=== PATIENT | male | born 1930 | race Caucasian/White ===

== ENCOUNTER 2017-07-10 06:19 | Inpatient (IN) | payer MEDICARE ==
[~2017-07-10] VITALS: Ht 170.2 cm; Wt 96.4 kg
[2017-07-10] VITALS (12 sets, daily range): BP systolic 140–166; BP diastolic 66–71; PULSE 53–80; RESP 17–19; TEMP 97.7–97.9; O2SAT 94–99
[~2017-07-10 06:19] MED LIST: AMLO5TAB2 PO; COUM5TAB PO; COUM7.5T PO; COZA100T PO; EZET10 PO; LIPI40TA PO; METO25TA3 PO; MULT1TAB84 PO; OMEP20TA93 PO; PROS5TAB PO; VITA100018 PO; VITA500T35 PO
[2017-07-10] MEDS ORDERED: IOHEXOL 350 MG/ML 100 ML BTL (for Cath Lab) OTHER ONE (06:20)
[2017-07-10] MEDS ORDERED: ASPIRIN 325 MG TAB PO SCH (06:45)
[2017-07-10] MEDS ORDERED: NS 1000P @30 MLS/HR (KVO) IV SCH (06:45)
[2017-07-10] MEDS ORDERED: MULT-65 PO (07:17)
[2017-07-10] MEDS ORDERED: NITR0.4S SL (07:17)
[2017-07-10] MEDS ORDERED: METO25TA3 PO (07:17)
[2017-07-10] MEDS ORDERED: FLUTI44I INH (07:17)
[2017-07-10] MEDS ORDERED: PRAV40TA2 PO (07:17)
[2017-07-10] MEDS ORDERED: TRAM50TA PO (07:17)
[2017-07-10 07:30] LABS: AUTOMATED NEUTROPHIL # 1.7 TH/MM3 (1.8-7.7); BASOPHIL % 0.5 % (0.0-2.0); EOSINOPHIL # 0.2 TH/MM3 (0-0.4); EOSINOPHIL % 4.1 % (0.0-4.0); HEMOGLOBIN 11.3 GM/DL (13.0-17.0); LYMPH % 44.1 % (9.0-44.0); LYMPHOCYTE # 2.1 TH/MM3 (1.0-4.8); MEAN CELL VOLUME 87.7 FL (80.0-100.0); MEAN CORPUSCULAR HEMOGLOBIN 29.2 PG (27.0-34.0); MEAN CORPUSCULAR HGB CONC 33.3 % (32.0-36.0); MEAN PLATELET VOLUME 7.6 FL (7.0-11.0); MONO % 13.9 % (0.0-8.0); MONOCYTE # 0.7 TH/MM3 (0-0.9); NEUT % 37.4 % (16.0-70.0); PLATELET COUNT 201 TH/MM3 (150-450); RED BLOOD COUNT 3.87 MIL/MM3 (4.50-5.90); RED CELL DISTRIBUTION WIDTH 15.2 % (11.6-17.2); WHITE BLOOD COUNT 4.7 TH/MM3 (4.0-11.0)
[2017-07-10 07:43] LABS: INTERNATIONAL NORMALIZED RATIO 1.5 RATIO
[2017-07-10 07:44] LABS: BICARBONATE 28.8 MEQ/L (21.0-32.0); CALCIUM 8.8 MG/DL (8.5-10.1); CREATININE 1.29 MG/DL (0.60-1.30)
[2017-07-10] MEDS ORDERED: HEPARIN-NS/PF FLUSH BAG 2,000 ML IV FLUSH ONE (08:21)
[2017-07-10] MEDS ORDERED: MIDAZOLAM HCL 2 MG/2 ML VIAL ONE ×2 (08:21→08:49)
[2017-07-10] MEDS ORDERED: NITROGLYCERIN INJ 5 ML ONE (08:22)
[2017-07-10] MEDS ORDERED: VERAPAMIL HCL 5 MG/2 ML VIAL ONE (08:22)
[2017-07-10] MEDS ORDERED: HEPARIN SODIUM - IV 10,000 UNITS/10 ML VIAL ONE (08:22)
[2017-07-10] MEDS ORDERED: SODIUM CHLOR 0.9% 1000 ML INJ 1,000 ML IV SCH (09:27)
--- NOTE | 2017-07-10 09:28 | CATHPROC ---
Stylect HIS Report Study Information Study Number Admission Scheduled Start Study Start [id number] Jul 10 2017 6:19AM 07/10/2017 Jul 10 2017 7:59AM [place] Service Cardiac Catheterization Admit Source Facility Department Other [facility] - Print Line Tailer Physician and Clinical Staff Initial Earl Galindo Branch Store Manager Cr Lackey,AGUST[place] Branch Store Manager Beth Mclean,[place] Recorder Maria C Lima,RT(R) (BS) Scrub Trung BonillaRT(R) Procedures Performed Procedure Location (Site) Vessel Name Coronary Angiograms LCA Left Coronary Coronary Angiograms RCA Right Coronary L Heart Cath Equipment Time Transport Specialist Description Size Mfg Part Number Used/Scraped TRANSDUCER, TRUWAVE [id number] 08:18 FONTAINE ROSENTHAL * Used W/STOCKCOCK *[id number] *[id number] 08:18 MALLINCKRODT SYRINGE, ANGIOMAT 150ML 150ML *[id number] Used 2SUB [id number] 08:18 [employer]Easy PACK, CCL CUSTOM * Used *[id number] 08:18 [employer] SUPPORT, ARTERIAL ADULT 23087 *[id number] Used [id number] 08:18 [email or web address] PACER PEN, SKIN DUAL W/ RULER * Used *[id number] 09:08 MEDTRONIC JR 5.0 DXTERITY CATHETER fr 5 [id number] Used BAND, RADIAL COMPRESSION TR [id number] 09:18 [employer] MEDICAL 29CM Used LARGE 29 *[id number] 08:18 [employer] MEDICAL WIRE, EXCHANGE 260CM 3MMJ 260CM Used *[id number] 08:18 NAMIC MANIFOLD, 4 PORT * Used *[id number] 08:18 [employer]COMED OMNIPAQUE, 350 MG, 100ML 100ML [id number] Used [id number] 08:18 [employer] MEDICAL BLANKET,WARM AIR CCL * Used *[id number] 08:18 [employer] MEDICAL JELCO NEEDLE 4056 *[id number] Used CATHETER, FR5 OPTITORQUE [id number] 08:42 TERUMO MEDICAL FR 5 Used RADIAL TIG 4.0 *[id number] SHEATH, FR6 TRANSRADIAL RM*[id number] 08:18 [employer] MEDICAL FR 6 Used SLENDER 10CM *[id number] History: Current Medications Medication Dosage/Unit Route Frequency Last Date/Time Taken COZAAR Beta [place] NORVASC ASA Coumadin Statins (any) Zieta History: Allergies Allergy Reaction Lortab Rash PAPER TAPE Rash hydrocodone Rash acetaminophen Rash History: Risk Factors Family History of Hypertension Dyslipidemia Previous PA Previous Heart Failure Premature CAD Yes Yes No No No Prior Valve Prior PCI Prior CABG Surgery No No No Cerebrovascular Peripheral Artery Chronic Lung On Dialysis Diabetes Disease Disease Disease No No No No No History: Stress Tests Stress or Imaging Studies Performed No History: Other Current Smoker Method Quit Packs a Day Years Used Pack Years No Cigarettes 45 Years Ago 1 23 23 Labs Hgb (g/dl) Hct (%) WBC (l/cumm) Platelets (thousands) 11.60-17.00 35.00-51.00 4.00-11.00 150.00-450.00 11.3 34 4.7 201 Glucose (mg/dl) BUN (mg/dl) Creatinine (mg/dl) BUN:Creatinine (1:x) 74.00-106.00 7.00-18.00 0.50-1.30 10.00-20.00 95 17 1.2 14.2 Na (meq/l) K (meq/l) 136.00-145.00 3.50-5.10 141 4.1 INR (PTT:PT) 0.90-1.10 1.5 CPK-MB (ng/ML) 0.50-3.60 Not Drawn Medication Medication Total Dose (Bolus/Oral) Medication Total Dosage/Unit 1% XYLOCAINE 1 mL RADIAL COCKTAIL 1 units Medications (Bolus/Oral) Medication Time Given Dosage/Unit Administered By Reason 1% XYLOCAINE 07/10/2017 8:47:28 AM 1 mL Earl Pratt 1 mL 1% XYLOCAINE given in lab by Earl Pratt in Right Radial via Subcutaneous. Ntg 200mcg Verapamil 2.5mg Heparin RADIAL COCKTAIL 07/10/2017 8:49:25 AM 1 units Earl Pratt 2000U 1 units RADIAL COCKTAIL given in lab by Earl Pratt in Right Antecubital via Radial. Reason: Ntg 20 0mcg Heparin 2500U. Medication (Drip) Medication Time Given Dosage/Unit Concentration/Unit Diluent (ml) Solution IV Solutions 07/10/2017 8:15:58 AM 0 mL (IV) 500 NaCl .9 IV Solutions given in lab by Beth Mclean, RN in Right Antecubital via Peripheral IV. Pump/Drip Fl ow = 30 ml/hr using NaCl .9. Initial Case Assessment Cardiovascular HR Rhythm NIBP 54 reg 171/78 Edema Present Skin color Skin None Normal Warm Dry Circulatory - Right Pulses Dorsalis Pedis Posterior Tibial Femoral Radial 1 1 2 3 Scale (0,1,2,3,4,d) Circulatory - Left Pulses Dorsalis Pedis Posterior Tibial Femoral Radial 1 1 2 Scale (0,1,2,3,4,d) Circulatory - Lower Extremities Color Lower Right Color Lower Left Normal Normal Neurological State Oriented to time-place- Alert Moves all extremities person Respiration - General Respiration Rate SpO2 (%) (B/min) 8 98 Chronological Log Time Study Chronological Log 8:12:11 Patient arrived via Bed. 8:12:13 Patient Name, D.O.B, / Armband Verified By R.N. 8:12:15 Consent signed by the physician and the patient and verified by the Print Line Tailer staff. 8:12:16 Pre-op and post- op instructions given; patient acknowledges understanding of instructions . 8:14:53 Verbal Stimulation=2 Physical Stimulation=2 Airway=2 Respiration=2 TOTAL=8. (0=absent, 1=lucero ited, 2=present) 8:14:55 Presedation assessment performed by Print Line Tailer RN. 8:14:58 Allens test performed on the right radial and ulnar artery. 8:15:05 Patient has been NPO for More than 6Hrs. 8:15:07 Skin Breakdown none per pt 8:15:08 Patient Warmer Placed on the Table. 8:15:53 Jasper Prominences Protected 8:15:57 A # 20 IV was noted in the Antecubital (right). Grade = 0 IV Solutions given in lab by Beth Mclean, RN in Right Antecubital via Peripheral IV. Pump/Dr ip Flow = 30 ml/hr 8:15:58 using NaCl .9. 8:15:59 History and physical on the chart or being dictated. Assessment: Initial Case, HR=54 BPM, Rhythm=reg, HGTM=474/78 mmhg, Edema=None, Color=Normal, Ski n = Warm, Dry Right Pulses: Edgar Ped=1, Post Tib=1, Femoral=2, Radial=3 Left Pulses: Edgar Ped=1, Post Tib=1, Femoral=2 8:16:02 Lower Right Extremities: Color=Normal Lower Left Extremities: Color=Normal Neurological: State=Alert, Ox3, YBARRA Respiration: Resp=8 B/min, SpO2=98 % Vitals capture started with the following parameters, Patient=Adult, Interval=5 min, Initial Pre cwgce=845 mmHg, 8:16:36 Deflation Rate=5 mmHg, Cuff placed on Right Ankle 8:17:53 HR=56 bpm, YGHI=174/78 mmhg, SpO2=97.0 %, Resp=9 B/min, Pain=0, Janis=10, Buckley=2 8:22:19 HR=58 bpm, EIDX=528/65 mmhg, SpO2=99.0 %, Resp=11 B/min, Pain=0, Janis=10, Buckley=2 8:22:52 Reference ECG taken 8:26:32 Right Radial and right groin prepped with 2% chlorhexidine, and draped after a 3 min. waitin g time. 8:27:21 HR=53 bpm, FRUO=487/76 mmhg, SpO2=97.0 %, Resp=14 B/min, Pain=0, Janis=10, Buckley=2 8:31:47 MD paged 8:32:37 Pressure channel 1 zeroed. 8:32:56 HR=55 bpm, DDEI=576/71 mmhg, HhY2=058.0 %, Resp=16 B/min, Pain=0, Janis=10, Buckley=2 8:37:19 HR=58 bpm, BCZR=911/82 mmhg, SpO2=99.0 %, Resp=12 B/min, Pain=0, Janis=10, Buckley=2 8:40:11 MD arrived 8:42:18 HR=58 bpm, MVAY=054/76 mmhg, SpO2=99.0 %, Resp=15 B/min, Pain=0, Janis=10, Buckley=2 Time Out. Correct patient, correct procedure, correct physician, power injector not loaded with contrast with surgical 8:45:24 team present. Time Out Concurred by MD and individual staff in procedure. MD aware of INR 8:45:53 Case Start 8:47:28 1 mL 1% XYLOCAINE given in lab by Earl Pratt in Right Radial via Subcutaneous. 8:47:58 HR=62 bpm, TCAV=241/76 mmhg, MzG0=368.0 %, Resp=6 B/min, Pain=0, Janis=10, Buckley=2 8:48:59 Access site was right Radial Artery. A SHEATH, FR6 TRANSRADIAL SLENDER 10CM FR 6 was advanced into the Radial (right) using the Gladis montes 8:49:07 technique. 1 units RADIAL COCKTAIL given in lab by Earl Pratt in Right Antecubital via Radial. Reason: N tg 200mcg Heparin 8:49:25 2500U. A CATHETER, FR5 OPTITORQUE RADIAL TIG 4.0 FR 5 was advanced over a wire. OMNIPAQUE, 350 MG, 100M L 100ML 8:50:30 was used for injections. 8:52:16 HR=84 bpm, KHSZ=166/78 mmhg, SpO2=94.0 %, Resp=16 B/min, Pain=0, Janis=10, Buckley=2 Recorded Pressure: Ao, HR=84, Condition=Condition 1 8:52:37 (Aorta) Ao 127/68/96 8:52:49 The LCA was injected and visualized at various angles. OMNIPAQUE, 350 MG, 100ML 100ML used. 8:55:20 DOCU called. Advised pt will need a bed. 8:57:15 HR=55 bpm, DGUK=360/69 mmhg, SpO2=93.0 %, Resp=15 B/min, Pain=0, Janis=10, Buckley=2 8:59:04 The RCA was injected and visualized at various angles. OMNIPAQUE, 350 MG, 100ML 100ML use d. Recorded Pressure: LV, HR=74, Condition=Condition 1 9:01:52 (Left Ventricle) LV 157/11/17 9:02:55 HR=59 bpm, FVFY=728/66 mmhg, SpO2=95.0 %, Resp=27 B/min, Pain=0, Janis=10, Buckley=2 After removing the current catheter a MPA-2 INFINITI CATHETER FR 5 was advanced over a WIRE, E XCHANGE 260CM 9:03:32 3MMJ 260CM. 9:07:58 HR=60 bpm, UESX=335/67 mmhg, SpO2=94.0 %, Resp=16 B/min, Pain=0, Janis=10, Buckley=2 After removing the current catheter a JR 5.0 DXTERITY CATHETER fr 5 was advanced over a WIRE, EXCHANGE 260CM 9:08:02 3MMJ 260CM. Recorded Pressure: LV, Ao, HR=61, Condition=Condition 1 9:10:54 (Left Ventricle) LV 146/14/16, (Aorta) Ao 142/56/93 9:12:59 HR=62 bpm, JZCI=969/56 mmhg, SpO2=96.0 %, Resp=18 B/min, Pain=0, Janis=10, Buckley=2 9:15:12 Catheter was removed 9:15:20 Case End 9:15:41 Catheter(s) removed without difficulty 9:17:08 No case complications noted. 9:17:12 Bedside Report will be given. 9:17:38 A Left Heart Cath was performed. 9:17:52 HR=57 bpm, TSEB=705/68 mmhg, SpO2=99.0 %, Resp=12 B/min, Pain=0, Janis=10, Buckley=2 Radial Compression Device Used. 13 mLs of air placed in BAND, RADIAL COMPRESSION TR LARGE 29 2 9CM. Affected 9:18:00 hand 97 % O2 saturation. 9:22:51 HR=56 bpm, RLJV=634/67 mmhg, Resp=8 B/min, Pain=0, Janis=10, Buckley=2 9:24:18 Vitals capture stopped. End Study - Contrast Media Used In Study Contrast Total Opened (mL) Total Used (mL) Total Wasted (mL) Omnipaque 85 85 0 End Study - Maximum Contrast Load Max Contrast Load (mL) 387.5 End Study - Radiation Exposure Fluoro Time (minutes) 11.2 End Study - Sheaths Sheaths Pulled By Sheath Hold Time (min) Trung Bonilla End Study - Patient Disposition Complications Transferred To Interventional Outcome No Telemetry Bed No attempt made
[2017-07-10] MEDS ORDERED: SODIUM CHLORIDE 0.9% FLUSH 10 ML FLUSH IV FLUSH PRN ×2 (09:30→11:15)
[2017-07-10] MEDS ORDERED: BACITRACIN OINT 0.9 GM PKT TOP ONE (09:30)
[2017-07-10] MEDS ORDERED: ONDANSETRON HCL 4 MG/2 ML VIAL IVP PRN (09:30)
--- NOTE | 2017-07-10 10:00 | MA ---
cc: Earl Pratt MD 07/10/2017 PROCEDURE PERFORMED: Left heart catheterization, left ventriculography, coronary angiography, right renal arterial approach. DESCRIPTION OF PROCEDURE: The patient was brought to the cardiac cathode ray tube salvage processor in fasting state. The patient was sedated with 2 mg of IV Versed. Using 1% lidocaine for local anesthesia, a Terumo slender sheath was inserted in the right renal artery, requiring only a single stick. Coronary angiography was then performed using a Sebring catheter. Additional angiograms were obtained of the right coronary artery with a right 4 Jimmy with pressure damping. The Sebring catheter was also used to cross the valve and do an LV gram and pullback. Films were studied, and I thought that he would be better off with bypass than stenting. The sheath has been removed with a Terumo band placed. There were no complications. Note, standard cocktail was administered minus the verapamil nitroglycerin and heparin in this cocktail. FINDINGS: 1. Hemodynamics. Left ventricular pressure was 146/0 with an end diastolic pressure of 16. The aortic pressure is 142/56 with a mean of 93. There was no gradient during pullback from the left ventricle to the aorta. 2. Left ventriculography. Left ventriculography shows normal left ventricular function with EF 60%. 3. Coronary angiography. Left main coronary artery has about 20% distal tapering. The LAD has a very focal 90% stenosis just before a very large diagonal branch. The origin of the diagonal branch is not able to be visualized while there is disease in the LAD just past the diagonal branch about 70%, and the distal LAD has about a focal 75% stenosis. The diagonal branch is 80% proximal eccentric disease. Circumflex artery has about 35% disease. The right coronary artery is dominant and has an ostial focal 80% stenosis with pressure damping. CONCLUSIONS: 1. Preserved LV function. 2. Unremarkable hemodynamics. 3. Normal left ventricular function. 4. Severe multivessel disease. RECOMMENDATIONS: Coronary artery bypass grafting with bypasses to the LAD in 2 locations to the diagonal branch and right coronary artery. The patient will be admitted overnight for observation and a cardiothoracic surgery consult obtained. Earl Pratt MD VEW/DL , 09:25 AM , 09:59 AM
[2017-07-10] MEDS ORDERED: PAPAVERINE INJ 60 MG, NITROGLYCERIN INJ 100 MCG, DILTIAZEM INJ 100 MG in SODIUM CHLORID... IRRIGATION SCH (11:15)
[2017-07-10] MEDS ORDERED: CHLORHEXIDINE GLUCONATE 4% SOLN 120 ML BTL TOPICAL SCH (11:15)
[2017-07-10] MEDS ORDERED: INSULIN REGULAR (IV INFUSION) 100 UNITS in SODIUM CHLORIDE 0.9% INJ 99 ML IV PRN (11:15)
[2017-07-10] MEDS ORDERED: CEFAZOLIN INJ 500 MG in SODIUM CHLORIDE 0.9% IRR BTL 500 ML IRRIGATION SCH (11:15)
[2017-07-10] MEDS ORDERED: METOPROLOL TARTRATE 25 MG TAB PO SCH (11:15)
[2017-07-10] MEDS ORDERED: DEXTROSE 50% IN WATER 50 ML VIAL(D50) IV PUSH PRN (11:15)
[2017-07-10] MEDS ORDERED: ceFAZolin 2 GM PREMIX 50 ML IV SCH (11:15)
[2017-07-10] MEDS ORDERED: MISC INFORMATION XX ONE (12:00)
--- NOTE | 2017-07-10 12:31 | RADRPT ---
EXAM DATE/TIME: 07/10/2017 12:09 [facility] COMPARISON: No previous studies available for comparison. INDICATIONS : Evaluate for pneumonia, pneumothorax or communicable disease. Pre op cabg. MEDICAL HISTORY : Hypertension. pulmonary embolism, blood clot left leg, hx of kidney cancer, renal carcinoma SURGICAL HISTORY : Cholecystectomy. angioplasty, turp, left radical nephrectomy ENCOUNTER: Initial ACUITY: 1 day PAIN SCORE: 0/10 LOCATION: Bilateral chest FINDINGS: A single view of the chest demonstrates the lungs to be symmetrically aerated without evidence of mas s, infiltrate or effusion. The cardiomediastinal contours are unremarkable. Osseous structures are intact. CONCLUSION: No acute disease. Willam Evans Jr., MD on July 10, 2017 at 12:29 Board Certified Radiologist. This report was verified electronically.
--- NOTE | 2017-07-10 13:51 | RADRPT ---
EXAM DATE/TIME: 07/10/2017 12:31 [facility] COMPARISON: No previous studies available for comparison. EXTERNAL COMPARISON : [facility], Bilateral lower extremity venous doppler leg, October 31, 2011 INDICATIONS : Preop CABG. MEDICAL HISTORY : DVT. PE. BPH. Renal cancer. CAD. SURGICAL HISTORY : Angioplasty. Cholecystectomy. Left nephrectomy. Right knee arthroscopy. Foot surgery. Left wrist surgery. Discogram. ENCOUNTER: Initial ACUITY: 1 day PAIN SCORE: 0/10 LOCATION: Bilateral leg. TECHNIQUE: Venous ultrasound of the left and right leg was performed from the inguinal ligament to the proximal calf. Real-time, color Doppler and spectral tracing, compression and augmentation techniques were us ed. FINDINGS: RIGHT LEG: There is normal compressibility of the deep venous system from the inguinal region to the proximal ca lf. No echogenic clot is seen in the lumen of the common femoral, femoral, popliteal, and posterior tibial veins. There is a normal response of the venous system to proximal and distal augmentation an d respiration. LEFT LEG: There is normal compressibility of the deep venous system from the inguinal region to the proximal ca lf. No echogenic clot is seen in the lumen of the common femoral, femoral, popliteal, and posterior tibial veins. There is a normal response of the venous system to proximal and distal augmentation an d respiration. CONCLUSION: No evidence of DVT Agapito Fulton MD on July 10, 2017 at 13:49 Board Certified Radiologist. This report was verified electronically.
--- NOTE | 2017-07-10 13:54 | RADRPT ---
EXAM DATE/TIME: 07/10/2017 12:40 [facility] COMPARISON: No previous studies available for comparison. EXTERNAL COMPARISON : [facility], Bilateral lower extremity venous doppler leg, October 31, 2011 INDICATIONS : Preop CABG. MEDICAL HISTORY : DVT. PE. BPH. Renal cancer. CAD. SURGICAL HISTORY : Angioplasty. Cholecystectomy. Left nephrectomy. Right knee arthroscopy. Foot surgery. Left wrist surgery. Discogram. ENCOUNTER: Initial ACUITY: 1 day PAIN SCORE: 0/10 LOCATION: Bilateral leg. GREATER SAPHENOUS VEIN THIGH: PROXIMAL: Right 4 mm Left 4 mm MID: Right 2 mm Left 2 mm DISTAL: Right 3 mm Left 3 mm CALF: PROXIMAL: Right 3 mm Left 3 mm MID: Right 3 mm Left 2 mm DISTAL: Right 3 mm Left 2 mm FINDINGS: The venous system of the lower extremities are patent by color Doppler imaging. Measurements of the leg veins (in mm) are listed above. CONCLUSION: Venous mapping as above. Agapito Fulton MD on July 10, 2017 at 13:52 Board Certified Radiologist. This report was verified electronically.
--- NOTE | 2017-07-10 13:57 | RADRPT ---
EXAM DATE/TIME: 07/10/2017 12:58 [facility] COMPARISON: No previous studies available for comparison. EXTERNAL COMPARISON : [facility], Bilateral lower extremity venous doppler leg, October 31, 2011 INDICATIONS : Preop CABG. MEDICAL HISTORY : DVT. PE. BPH. Renal cancer. CAD. SURGICAL HISTORY : Angioplasty. Cholecystectomy. Left nephrectomy. Right knee arthroscopy. Foot surgery. Left wrist surgery. Discogram. ENCOUNTER: Initial ACUITY: 1 day PAIN SCORE: 0/10 LOCATION: Bilateral neck PEAK SYSTOLIC VELOCITIES (cm/sec): ICA/CCA RATIO: Right: 1.3 Left: 1.1 ICA: Right: 118 Left: 114 CCA: Right: 90 Left: 100 ECA: Right: 179 Left: 149 VERTEBRAL: Right: 58 antegrade Left: 61 antegrade Elevated flow velocities and ICA/CCA ratios have been found to correlate with increased degrees of vessel stenosis, calculated as percentage of diameter relative to a normal segment of distal ICA/CCA FINDINGS: RIGHT CAROTID: No significant stenosis is visualized. The waveforms are within normal limits. LEFT CAROTID: No significant stenosis is visualized. The waveforms are within normal limits. VERTEBRAL ARTERIES: Antegrade flow is seen in both vertebral arteries. MISCELLANEOUS: None. CONCLUSION: 1. Scattered bilateral carotid plaque without significant flow-limiting stenosis. 2. Antegrade vertebral artery flow bilaterally. Trell Ellis MD on July 10, 2017 at 13:54 Board Certified Radiologist. This report was verified electronically.
[2017-07-10] MEDS ORDERED: HEPARIN SODIUM - IV 10,000 UNITS/10 ML VIAL IV PUSH ONE (15:00)
[2017-07-10] MEDS: HEPARIN-D5W 25,000 U/250 ML 250 ML IV PRN (15:32)
[2017-07-10 16:12] LABS: BACTERIA, URINE RARE /hpf; BILIRUBIN, URINE NEG (NEG); BLOOD, URINE NEG (NEG); GLUCOSE,URINE NEG (NEG); KETONE, URINE NEG (NEG); NITRITE,URINE NEG (NEG); PH, URINE 6.5 (5.0-8.5); URINE COLOR YELLOW (YELLW/STRAW); URINE LEUKOCYTE ESTERASE NEG (NEG)
[2017-07-10 16:26] LABS: HEMOGLOBIN A1C 6.1 % (4.3-6.0)
--- NOTE | 2017-07-10 17:38 | PD.CAR.PN ---
CVT Progress Note Subjective/Hospital Course: pt seen and evaluated, full consult to follow scheduled for surgery on sunday RISK SCORES About the STS Risk Calculator Procedure: CAB Only Risk of Mortality: 2.661% Morbidity or Mortality: 17.206% Long Length of Stay: 7.316% Short Length of Stay: 32.973% Permanent Stroke: 1.386% Prolonged Ventilation: 10.644% DSW Infection: 0.467% Renal Failure: 6.177% Reoperation: 6.351% Objective: Vital Signs Date Time Temp Pulse Resp B/P (MAP) Pulse Ox O2 Delivery O2 Flow Rate FiO2 07/10/17 17:00 79 07/10/17 16:00 63 07/10/17 15:00 65 07/10/17 15:00 73 19 163/70 (101) 96 07/10/17 14:00 67 17 140/71 (94) 99 07/10/17 14:00 65 07/10/17 14:00 67 17 140/71 (94) 99 07/10/17 13:38 97.9 67 19 155/67 (96) 97 07/10/17 09:30 99 Room Air 07/10/17 06:30 97.8 53 18 156/69 (98) 98 Labs: Laboratory Tests Test 07/10/17 07:05 07/10/17 15:50 White Blood Count 4.7 TH/MM3 (4.0-11.0) Red Blood Count 3.87 MIL/MM3 (4.50-5.90) Hemoglobin 11.3 GM/DL (13.0-17.0) Hematocrit 34.0 % (39.0-51.0) Mean Corpuscular Volume 87.7 FL (80.0-100.0) Mean Corpuscular Hemoglobin 29.2 PG (27.0-34.0) Mean Corpuscular Hemoglobin Concent 33.3 % (32.0-36.0) Red Cell Distribution Width 15.2 % (11.6-17.2) Platelet Count 201 TH/MM3 (150-450) Mean Platelet Volume 7.6 FL (7.0-11.0) Neutrophils (%) (Auto) 37.4 % (16.0-70.0) Lymphocytes (%) (Auto) 44.1 % (9.0-44.0) Monocytes (%) (Auto) 13.9 % (0.0-8.0) Eosinophils (%) (Auto) 4.1 % (0.0-4.0) Basophils (%) (Auto) 0.5 % (0.0-2.0) Neutrophils # (Auto) 1.7 TH/MM3 (1.8-7.7) Lymphocytes # (Auto) 2.1 TH/MM3 (1.0-4.8) Monocytes # (Auto) 0.7 TH/MM3 (0-0.9) Eosinophils # (Auto) 0.2 TH/MM3 (0-0.4) Basophils # (Auto) 0.0 TH/MM3 (0-0.2) CBC Comment DIFF FINAL Differential Comment Prothrombin Time 15.0 SEC (9.8-11.6) Prothromb Time International Ratio 1.5 RATIO Activated Partial Thromboplast Time 26.8 SEC (24.3-30.1) Blood Urea Nitrogen 17 MG/DL (7-18) Creatinine 1.29 MG/DL (0.60-1.30) Random Glucose 95 MG/DL (74-106) Calcium Level 8.8 MG/DL (8.5-10.1) Sodium Level 141 MEQ/L (136-145) Potassium Level 4.1 MEQ/L (3.5-5.1) Chloride Level 107 MEQ/L (98-107) Carbon Dioxide Level 28.8 MEQ/L (21.0-32.0) Anion Gap 5 MEQ/L (5-15) Estimat Glomerular Filtration Rate 53 ML/MIN (>89) Urine Color YELLOW (YELLW/STRAW) Urine Turbidity CLEAR (CLEAR) Urine pH 6.5 (5.0-8.5) Urine Specific [place] 1.041 (1.002-1.035) Urine Protein NEG mg/dL (NEG-TRACE) Urine Glucose (UA) NEG mg/dL (NEG) Urine Ketones NEG mg/dL (NEG) Urine Occult Blood NEG (NEG) Urine Nitrite NEG (NEG) Urine Bilirubin NEG (NEG) Urine Urobilinogen LESS THAN 2.0 MG/DL (LESS Urine Leukocyte Esterase NEG (NEG) Urine WBC 1 /hpf (0-5) Urine Bacteria RARE /hpf (NONE) Microscopic Urinalysis Comment CULT NOT INDICATED Result Diagram: 07/10/1770407/10/17704 Zuleyma Parrish Jul 10, 2017 17:37
[2017-07-10] MEDS ORDERED: HEPARIN SODIUM - IV 10,000 UNITS/10 ML VIAL IV PUSH PRN ×2 (18:45)
--- NOTE | 2017-07-10 18:53 | MB ---
cc: Zuleyma Parrish Jacqueline R ARNP DATE OF CONSULT: 07/10/[address] Earl Pratt and Dr. Julia Poole who has had a history of ____ tightness in his neck off and on for the past year, worsening over the last couple of months, more noticeable with exertion. He has been followed by Dr. Pratt in the past. He has had a history of coronary artery disease with prior PTCA to the RCA in 1991. He underwent cardiac catheterization today which showed an ejection fraction of 60%, left main disease 20%, proximal LAD 90%, mid distal LAD 75%, the diagonal was 80%, the RCA 80%. We were consulted to evaluate for coronary artery bypass grafting times 3, LAD, diagonal and RCA. He had a prior echocardiogram back in 2014 that at that time showed an ejection fraction of 63%, some diastolic dysfunction and no valvular disease. We were consulted for evaluation for coronary artery bypass grafting. PAST MEDICAL HISTORY: Includes coronary artery disease, history of DVT, pulmonary emboli in 2010 with a DVT in 2011. He has since been on Coumadin. He has been off his Coumadin for his heart cath. His INR is 1.5 today. Other history includes hypertension, hyperlipidemia, history of renal cancer, skin cancer. He also has some type of eczema. PAST SURGICAL HISTORY: Includes cardiac cath with LEAD HANDLER to the RCA in 1991, cholecystectomy, right knee surgery, left kidney nephrectomy which did not require chemo or radiation. He has had a TURP of the prostate. ALLERGIES: INCLUDE LORTAB AND TAPE. MEDICATIONS: Home include finasteride, Flonase, losartan, metoprolol, multivitamin, nitro, Norvasc, omeprazole, Pravachol, tramadol, Coumadin and Zetia. FAMILY HISTORY: Mother has had history of colon cancer, hypertension, dementia. Father unknown. SOCIAL HISTORY: Patient is , 3 children. He smoked for 15 years, quit 40 years ago. 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 He drinks maybe 1 drink per week. REVIEW OF SYSTEMS: GENERAL: No night sweats, fever. HEENT: No blurred vision or hearing loss. RESPIRATORY: No cough, shortness of breath. CARDIOVASCULAR: As above in the HPI. GASTROINTESTINAL: No diarrhea or vomiting. GENITOURINARY: No burning, frequency, urgency. 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 ENDOCRINOLOGY: No history of diabetes and/or hypothyroidism. PHYSICAL EXAMINATION: VITAL SIGNS: Blood pressure 156/70, heart rate of 53, temp max 97.8, room air sat 99. GENERAL: Patient is awake, alert in no acute distress. HEENT: Head is normocephalic, atraumatic. Pupils equal and reactive. Oral mucosa - pink and moist. NECK: Supple. No JVD HEART: S1, S2. Regular rate and rhythm. No audible murmurs, rubs or gallops. LUNGS: Clear to auscultation. No wheezes, rales or rhonchi. ABDOMEN: Soft, nontender. No masses or organomegaly. EXTREMITIES: No cyanosis, clubbing or edema.. LABORATORY DATA: Hemoglobin 11, hematocrit of 34, white cell count of 4.7, platelets 201. Sodium 141, potassium 4.1, BUN 17, creatinine 1.29. IMPRESSION: This is an 86-year-old male with history of coronary artery disease, unstable angina class III with multivessel disease. Cardiac films have been evaluated by Dr. Blanche Casey. Procedures, alternatives and risks have been discussed with the patient. He is agreeable to proceed. At this time, we will schedule him for Sunday for coronary artery bypass grafting times 3 and endoscopic harvesting. Zuleyma Parrish [facility] MD MG Self//uli , 05:44 PM , 06:13 PM
[2017-07-10] MEDS ORDERED: SODIUM CHLORIDE 0.9% FLUSH 10 ML FLUSH IV FLUSH SCH (21:00)
[2017-07-10] MEDS: METOPROLOL TARTRATE 25 MG TAB PO SCH (21:47)
[2017-07-10] MEDS: SODIUM CHLORIDE 0.9% FLUSH 10 ML FLUSH IV FLUSH SCH (21:48)
[2017-07-11] VITALS (29 sets, daily range): BP systolic 111–157; BP diastolic 53–70; PULSE 54–90; RESP 16–18; TEMP 97.6–98.7; O2SAT 95–98
[2017-07-11 02:36] LABS: AUTOMATED NEUTROPHIL # 3.7 TH/MM3 (1.8-7.7); BASOPHIL % 0.5 % (0.0-2.0); EOSINOPHIL # 0.2 TH/MM3 (0-0.4); EOSINOPHIL % 3.2 % (0.0-4.0); HEMATOCRIT 33.5 % (39.0-51.0); HEMOGLOBIN 11.6 GM/DL (13.0-17.0); LYMPH % 30.5 % (9.0-44.0); LYMPHOCYTE # 2.1 TH/MM3 (1.0-4.8); MEAN CELL VOLUME 87.5 FL (80.0-100.0); MEAN CORPUSCULAR HEMOGLOBIN 30.2 PG (27.0-34.0); MEAN CORPUSCULAR HGB CONC 34.6 % (32.0-36.0); MEAN PLATELET VOLUME 8.1 FL (7.0-11.0); MONOCYTE # 0.8 TH/MM3 (0-0.9); NEUT % 53.8 % (16.0-70.0); PLATELET COUNT 213 TH/MM3 (150-450); RED BLOOD COUNT 3.83 MIL/MM3 (4.50-5.90); RED CELL DISTRIBUTION WIDTH 15.2 % (11.6-17.2); WHITE BLOOD COUNT 6.9 TH/MM3 (4.0-11.0)
[2017-07-11 02:43] LABS: INTERNATIONAL NORMALIZED RATIO 1.3 RATIO; PROTHROMBIN TIME - PATIENT 12.8 SEC (9.8-11.6)
[2017-07-11] MEDS: oxyCODONE/ACETAMINOPHEN 5 MG/325 MG TAB PO PRN (04:32)
[2017-07-11] MEDS: EZETIMIBE 10 MG TAB PO SCH (08:26)
[2017-07-11] MEDS: METOPROLOL TARTRATE 25 MG TAB PO SCH ×2 (08:26→20:48)
[2017-07-11] MEDS: PANTOPRAZOLE SOD 20 MG DELAYED RELEASE TAB PO SCH (08:27)
[2017-07-11] MEDS: PRAVASTATIN SOD 40 MG TAB PO SCH (08:27)
[2017-07-11] MEDS: amLODIPine BESYLATE 5 MG TAB PO SCH (08:27)
[2017-07-11] MEDS: FINASTERIDE 5 MG TAB PO SCH (08:27)
[2017-07-11] MEDS: SODIUM CHLORIDE 0.9% FLUSH 10 ML FLUSH IV FLUSH SCH ×2 (08:27→20:50)
[2017-07-11] MEDS: MULTIVITAMIN TAB PO SCH (08:27)
[2017-07-11] MEDS ORDERED: amLODIPine BESYLATE 5 MG TAB PO SCH (09:00)
[2017-07-11] MEDS: FLUTICASONE PROPIONATE 44 MCG/ACT 10.6 GM INHALER INH SCH (09:00)
[2017-07-11] MEDS ORDERED: LOSARTAN 50 MG TAB PO SCH (09:00)
[2017-07-11] MEDS ORDERED: PNEUMOCOCCAL POLYVALENT INJ 25 MCG/0.5 ML SYR IM ONE (10:00)
[2017-07-11] MEDS ORDERED: SOD PHOSPHATE/SOD BIPHOSPHATE (ADULT) ENEMA 133ML PR PRN (10:15)
[2017-07-11] MEDS ORDERED: BISACODYL 10 MG SUPP RECTAL PRN (10:15)
[2017-07-11] MEDS: DOCUSATE SODIUM 100 MG CAP PO SCH ×2 (11:31→20:48)
--- NOTE | 2017-07-11 12:40 | PD.CARD.PN ---
Subjective Subjective Remarks No angina. Feels OK Objective Medications Current Medications Medications (Trade) Dose Ordered Sig/Annamarie Route Start Time Stop Time Status Last Admin (Aspirin) 325 mg BOTTLE LABEL INSPECTOR PO 07/10/17 06:45 07/13/17 06:44 07/10/17 08:07 (Zofran Inj) 4 mg Q6H PRN IVP 07/10/17 09:30 (Percocet 5-325 Mg) 1 tab Q4H PRN PO 07/10/17 11:15 07/11/17 04:32 (Zetia) 10 mg DAILY PO 07/11/17 09:00 07/11/17 08:26 (Proscar) 5 mg DAILY PO 07/11/17 09:00 07/11/17 08:27 (Flovent Hfa 44 Mcg Inh) 2 puff DAILY INH 07/11/17 09:00 (Lopressor) 25 mg BID PO 07/10/17 21:00 07/11/17 08:26 (Pravachol) 40 mg DAILY PO 07/11/17 09:00 07/11/17 08:27 (Theragran) 1 tab DAILY PO 07/11/17 09:00 07/11/17 08:27 (Protonix) 20 mg DAILY PO 07/11/17 09:00 07/11/17 08:27 (Norvasc) 10 mg DAILY PO 07/11/17 09:00 07/11/17 08:27 (NS Flush) 2 ml BID IV FLUSH 07/10/17 21:00 07/11/17 08:27 (NS Flush) 2 ml UNSCH PRN IV FLUSH 07/10/17 11:15 Papaverine HCl 60 mg/Nitroglycerin 100 mcg/Diltiazem HCl 100 mg/Sodium Chloride 100 ml @ 0 mls/hr BOTTLE LABEL INSPECTOR IRRIGATION 07/10/17 11:15 07/17/17 11:14 Cefazolin Sodium 500 mg/Sodium Chloride 505 ml @ 0 mls/hr BOTTLE LABEL INSPECTOR IRRIGATION 07/10/17 11:15 07/17/17 11:14 Cefazolin Sodium/ Dextrose 50 ml @ 100 mls/hr BOTTLE LABEL INSPECTOR IV 07/10/17 11:15 07/17/17 11:14 (Lopressor) 12.5 mg BOTTLE LABEL INSPECTOR PO 07/10/17 11:15 07/17/17 11:14 (Hibiclens 4% Top Soln) 1 applic BOTTLE LABEL INSPECTOR TOPICAL 07/10/17 11:15 07/17/17 11:14 Insulin Human Regular 100 units/ Sodium Chloride 100 ml @ 3 mls/hr TITRATE PRN IV 07/10/17 11:15 07/17/17 11:14 (D50w (Vial) Inj) 50 ml UNSCH PRN IV PUSH 07/10/17 11:15 (Heparin Inj) 5,000 units UNSCH PRN IV PUSH 07/10/17 18:45 (Heparin Inj) 2,500 units UNSCH PRN IV PUSH 07/10/17 18:45 Heparin Sodium/ Dextrose 250 ml @ 10 mls/hr TITRATE PRN IV 07/10/17 12:45 07/10/17 15:32 (Colace) 100 mg BID PO 07/11/17 10:15 07/11/17 11:31 (Dulcolax Supp) 10 mg ONCE PRN RECTAL 07/11/17 10:15 07/11/17 23:00 (Fleets Enema (Adult)) 133 ml ONCE PRN MI 07/11/17 10:15 07/11/17 23:00 Vital Signs / I&O Vital Signs Date Time Temp Pulse Resp B/P (MAP) Pulse Ox O2 Delivery O2 Flow Rate FiO2 07/11/17 11:30 97.6 60 18 123/58 (79) 95 07/11/17 08:30 98.1 72 18 135/65 (88) 98 07/11/17 07:01 56 07/11/17 06:02 67 07/11/17 05:45 18 07/11/17 05:00 64 07/11/17 04:00 66 07/11/17 03:00 98.0 73 157/70 (99) 97 07/11/17 03:00 56 07/11/17 02:00 60 07/11/17 01:00 72 07/11/17 00:00 66 07/10/17 23:00 68 07/10/17 23:00 97.9 74 150/66 (94) 94 07/10/17 22:00 68 07/10/17 21:00 64 07/10/17 20:00 64 07/10/17 19:00 66 07/10/17 19:00 97.7 66 166/71 (102) 99 07/10/17 18:00 80 07/10/17 17:00 79 07/10/17 16:00 63 07/10/17 15:00 65 07/10/17 15:00 73 19 163/70 (101) 96 07/10/17 14:00 67 17 140/71 (94) 99 07/10/17 14:00 65 07/10/17 14:00 67 17 140/71 (94) 99 07/10/17 13:38 97.9 67 19 155/67 (96) 97 I/O 07/10/17 07/10/17 07/10/17 07/11/17 07/11/17 07/11/17 07:00 15:00 23:00 07:00 15:00 23:00 Intake Total 495 ml 595 ml Output Total 350 ml 1375 ml Balance 145 ml -780 ml Intake Oral 480 ml 480 ml IV Total 15 ml 115 ml Output Urine Total 350 ml 1375 ml Physical Exam GENERAL: Well developed, well nourished. No acute distress. HEENT: Jugular venous pressure is normal. CHEST: Lungs clear to auscultation bilaterally. Unlabored respiratory effort. CARDIAC: Regular rate and rhythm without S3, S4, or 1/6 KELVIN ABDOMEN: Soft, nontender, no hepatosplenomegaly. Bowel sounds present. EXTREMITIES: No clubbing, cyanosis, or edema. Right wrist OK Laboratory Laboratory Tests Test 07/10/17 15:50 07/10/17 19:35 07/11/17 02:00 07/11/17 04:30 Urine Color YELLOW Urine Turbidity CLEAR Urine pH 6.5 Urine Specific [place] 1.041 Urine Protein NEG mg/dL Urine Glucose (UA) NEG mg/dL Urine Ketones NEG mg/dL Urine Occult Blood NEG Urine Nitrite NEG Urine Bilirubin NEG Urine Urobilinogen LESS THAN 2.0 MG/DL Urine Leukocyte Esterase NEG Urine WBC 1 /hpf Urine Bacteria RARE /hpf Microscopic Urinalysis Comment CULT NOT INDICATED Activated Partial Thromboplast Time 42.4 SEC 49.7 SEC White Blood Count 6.9 TH/MM3 Red Blood Count 3.83 MIL/MM3 Hemoglobin 11.6 GM/DL Hematocrit 33.5 % Mean Corpuscular Volume 87.5 FL Mean Corpuscular Hemoglobin 30.2 PG Mean Corpuscular Hemoglobin Concent 34.6 % Red Cell Distribution Width 15.2 % Platelet Count 213 TH/MM3 Mean Platelet Volume 8.1 FL Neutrophils (%) (Auto) 53.8 % Lymphocytes (%) (Auto) 30.5 % Monocytes (%) (Auto) 12.0 % Eosinophils (%) (Auto) 3.2 % Basophils (%) (Auto) 0.5 % Neutrophils # (Auto) 3.7 TH/MM3 Lymphocytes # (Auto) 2.1 TH/MM3 Monocytes # (Auto) 0.8 TH/MM3 Eosinophils # (Auto) 0.2 TH/MM3 Basophils # (Auto) 0.0 TH/MM3 CBC Comment DIFF FINAL Differential Comment Prothrombin Time 12.8 SEC Prothromb Time International Ratio 1.3 RATIO Nasal Screen MRSA (PCR) MRSA NOT DETECTED Imaging Last 48 hours Impressions Lower Extremity Ultrasound 07/10/17 0000 Signed Impressions: Service Date/Time: Monday, July 10, 2017 12:40 - CONCLUSION: Venous mapping as above. Agapito Fulton MD Lower Extremity Ultrasound 07/10/17 0000 Signed Impressions: Service Date/Time: Monday, July 10, 2017 12:31 - CONCLUSION: No evidence of DVT Agapito Fulton MD Chest X-Ray 07/10/17 Signed Impressions: Service Date/Time: Monday, July 10, 2017 12:09 - CONCLUSION: No acute disease. Willam Evans Jr., MD Carotid Artery Ultrasound 07/10/17 0000 Signed Impressions: Service Date/Time: Monday, July 10, 2017 12:58 - CONCLUSION: 1. Scattered bilateral carotid plaque without significant flow-limiting stenosis. 2. Antegrade vertebral artery flow bilaterally. Trell Ellis MD Assessment and Plan Problem List: (1) Angina pectoris ICD Codes: I20.9 - Angina pectoris, unspecified (2) CAD (coronary artery disease) ICD Codes: I25.10 - Atherosclerotic heart disease of [place] coronary artery without angina pectoris Assessment and Plan CABG Sunday Earl Pratt MD Jul 11, 2017 12:40
[2017-07-11] MEDS: HEPARIN-D5W 25,000 U/250 ML 250 ML IV PRN (14:35)
--- NOTE | 2017-07-11 15:20 | PD.CAR.PN ---
CVT Progress Note Subjective/Hospital Course: 86/ male patient of Dr. Earl Pratt and Dr. Julia Poole who has had a history of chest tightness in his neck off and on for the past year, worsening over the last couple of months, more noticeable with exertion. He has had a history of coronary artery disease with prior PTCA to the RCA in 1991. He underwent cardiac catheterization today which showed an ejection fraction of 60% , left main disease 20%, proximal LAD 90%, mid distal LAD 75%, the diagonal was 80%, the RCA 80%. We were consulted to evaluate for coronary artery bypass grafting times 3, LAD, diagonal and RCA. He had a prior echocardiogram back in 2014 that at that time showed an ejection fraction of 63%, some diastolic dysfunction and no valvular disease. PAST MEDICAL HISTORY: Includes coronary artery disease, history of DVT, pulmonary emboli in 2010 with a DVT in 2011. He has since been on Coumadin, hypertension, hyperlipidemia, history of renal cancer, skin cancer. 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 HEAD: Normocephalic. EYES: No scleral icterus. No injection or drainage. NECK: Supple, trachea midline. No JVD or lymphadenopathy. CARDIOVASCULAR: Regular rate and rhythm without murmurs, gallops, or rubs. RESPIRATORY: Breath sounds equal bilaterally. No accessory muscle use. GASTROINTESTINAL: Abdomen soft, non-tender, nondistended. MUSCULOSKELETAL: No cyanosis, or edema. BACK: Nontender without obvious deformity. No CVA tenderness. Vital Signs Date Time Temp Pulse Resp B/P (MAP) Pulse Ox O2 Delivery O2 Flow Rate FiO2 07/11/17 12:01 56 07/11/17 11:30 97.6 60 18 123/58 (79) 95 07/11/17 11:00 61 07/11/17 10:00 60 07/11/17 09:00 60 07/11/17 08:30 98.1 72 18 135/65 (88) 98 07/11/17 08:00 54 07/11/17 07:01 56 07/11/17 06:02 67 07/11/17 05:45 18 07/11/17 05:00 64 07/11/17 04:00 66 07/11/17 03:00 98.0 73 157/70 (99) 97 07/11/17 03:00 56 07/11/17 02:00 60 07/11/17 01:00 72 07/11/17 00:00 66 07/10/17 23:00 68 07/10/17 23:00 97.9 74 150/66 (94) 94 07/10/17 22:00 68 07/10/17 21:00 64 07/10/17 20:00 64 07/10/17 19:00 66 07/10/17 19:00 97.7 66 166/71 (102) 99 07/10/17 18:00 80 07/10/17 17:00 79 07/10/17 16:00 63 Labs: Laboratory Tests Test 07/11/17 04:30 Nasal Screen MRSA (PCR) MRSA NOT DETECTED (NOT Result Diagram: 07/11/17 0200 07/10/17 0705 (1) Angina pectoris (2) CAD (coronary artery disease) Plan: on ASA, statin no BB HR upper 50's for surgery on sunday (3) Chronic kidney disease Plan: creatinine 1.29 (4) Hx pulmonary embolism Plan: resume coumadin after surgery and wehn chest tubes out (5) Personal history of DVT (deep vein thrombosis) Zuleyma Parrish Jul 11, 2017 15:20
[2017-07-12] VITALS (28 sets, daily range): BP systolic 119–154; BP diastolic 55–69; PULSE 55–90; RESP 16–18; TEMP 97.4–98.3; O2SAT 96–99
[2017-07-12] MEDS: MULTIVITAMIN TAB PO SCH (08:45)
[2017-07-12] MEDS: EZETIMIBE 10 MG TAB PO SCH (08:45)
[2017-07-12] MEDS: PANTOPRAZOLE SOD 20 MG DELAYED RELEASE TAB PO SCH (08:46)
[2017-07-12] MEDS: FINASTERIDE 5 MG TAB PO SCH (08:46)
[2017-07-12] MEDS: PRAVASTATIN SOD 40 MG TAB PO SCH (08:46)
[2017-07-12] MEDS: METOPROLOL TARTRATE 25 MG TAB PO SCH ×2 (08:46→21:35)
[2017-07-12] MEDS: amLODIPine BESYLATE 5 MG TAB PO SCH (08:46)
[2017-07-12] MEDS: DOCUSATE SODIUM 100 MG CAP PO SCH ×2 (08:46→21:35)
[2017-07-12] MEDS: ASPIRIN EC 81 MG TABEC PO SCH (08:46)
[2017-07-12] MEDS: FLUTICASONE PROPIONATE 44 MCG/ACT 10.6 GM INHALER INH SCH (08:46)
[2017-07-12] MEDS: SODIUM CHLORIDE 0.9% FLUSH 10 ML FLUSH IV FLUSH SCH ×2 (08:46→21:36)
[2017-07-12] MEDS: HEPARIN-D5W 25,000 U/250 ML 250 ML IV PRN (16:36)
--- NOTE | 2017-07-12 16:39 | PD.CAR.PN ---
CVT Progress Note Subjective/Hospital Course: 86/ male patient of Dr. Earl Pratt and Dr. Julia Poole who has had a history of chest tightness in his neck off and on for the past year, worsening over the last couple of months, more noticeable with exertion. He has had a history of coronary artery disease with prior PTCA to the RCA in 1991. He underwent cardiac catheterization today which showed an ejection fraction of 60% , left main disease 20%, proximal LAD 90%, mid distal LAD 75%, the diagonal was 80%, the RCA 80%. We were consulted to evaluate for coronary artery bypass grafting times 3, LAD, diagonal and RCA. He had a prior echocardiogram back in 2014 that at that time showed an ejection fraction of 63%, some diastolic dysfunction and no valvular disease. PAST MEDICAL HISTORY: Includes coronary artery disease, history of DVT, pulmonary emboli in 2010 with a DVT in 2011. He has since been on Coumadin, hypertension, hyperlipidemia, history of renal cancer, skin cancer. 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 HEAD: Normocephalic. EYES: No scleral icterus. No injection or drainage. NECK: Supple, trachea midline. No JVD or lymphadenopathy. CARDIOVASCULAR: Regular rate and rhythm without murmurs, gallops, or rubs. RESPIRATORY: Breath sounds equal bilaterally. No accessory muscle use. GASTROINTESTINAL: Abdomen soft, non-tender, nondistended. MUSCULOSKELETAL: No cyanosis, or edema. BACK: Nontender without obvious deformity. No CVA tenderness. Vital Signs Date Time Temp Pulse Resp B/P (MAP) Pulse Ox O2 Delivery O2 Flow Rate FiO2 07/12/17 16:13 66 07/12/17 15:30 98.3 65 18 119/58 (78) 97 07/12/17 15:00 59 07/12/17 14:00 82 07/12/17 13:01 66 07/12/17 12:00 74 07/12/17 11:30 98.1 64 18 154/69 (97) 99 07/12/17 11:00 65 07/12/17 10:00 64 07/12/17 09:00 72 07/12/17 08:30 97.9 74 18 128/58 (81) 97 07/12/17 08:30 97 Room Air 07/12/17 08:00 70 07/12/17 07:01 59 07/12/17 06:03 66 07/12/17 05:00 60 07/12/17 04:03 64 07/12/17 03:35 98.3 65 16 129/55 (79) 97 07/12/17 03:00 82 07/12/17 02:00 90 07/12/17 01:00 55 07/12/17 00:00 56 07/11/17 23:15 98.7 66 16 130/61 (84) 95 07/11/17 23:15 95 Room Air 07/11/17 23:00 63 07/11/17 22:00 62 07/11/17 21:00 90 07/11/17 20:56 97.6 71 16 121/58 (79) 96 07/11/17 20:00 68 07/11/17 19:00 67 07/11/17 18:01 60 07/11/17 17:00 64 Labs: Laboratory Tests Test 07/12/17 11:50 Activated Partial Thromboplast Time 58.9 SEC (24.3-30.1) Result Diagram: 07/11/17 0200 07/10/17 0705 (1) Angina pectoris (2) CAD (coronary artery disease) Plan: on ASA, statin no BB HR upper 50's for surgery on sunday (3) Chronic kidney disease Plan: creatinine 1.29 (4) Hx pulmonary embolism Plan: resume coumadin after surgery and wehn chest tubes out (5) Personal history of DVT (deep vein thrombosis) Zuleyma Parrish Jul 12, 2017 16:39
--- NOTE | 2017-07-12 21:52 | EKG ---
Date Performed: 07/11/2017 Time Performed: 11:21:06 PTAGE: 86 years EKG: Sinus bradycardia rSr'(V1) - probable normal variant Borderline ECG PREVIOUS TRACING : 09/22/2013 11.26 No significant change from previous tracing noted. DOCTOR: Tony Marquez Interpretating Date/Time 07/12/2017 21:51:15
[2017-07-13] VITALS (22 sets, daily range): BP systolic 100–127; BP diastolic 35–59; PULSE 50–77; RESP 11–18; TEMP 97.7–98.6; O2SAT 95–98
[2017-07-13 08:15] LABS: HEMATOCRIT 34.4 % (39.0-51.0); HEMOGLOBIN 11.4 GM/DL (13.0-17.0); MEAN CELL VOLUME 88.7 FL (80.0-100.0); MEAN CORPUSCULAR HEMOGLOBIN 29.5 PG (27.0-34.0); MEAN CORPUSCULAR HGB CONC 33.3 % (32.0-36.0); MEAN PLATELET VOLUME 8.3 FL (7.0-11.0); PLATELET COUNT 205 TH/MM3 (150-450); RED BLOOD COUNT 3.88 MIL/MM3 (4.50-5.90); RED CELL DISTRIBUTION WIDTH 15.5 % (11.6-17.2); WHITE BLOOD COUNT 6.8 TH/MM3 (4.0-11.0)
[2017-07-13] MEDS: MULTIVITAMIN TAB PO SCH (08:23)
[2017-07-13] MEDS: METOPROLOL TARTRATE 25 MG TAB PO SCH ×2 (08:23→21:50)
[2017-07-13] MEDS: amLODIPine BESYLATE 5 MG TAB PO SCH (08:24)
[2017-07-13] MEDS: EZETIMIBE 10 MG TAB PO SCH (08:24)
[2017-07-13] MEDS: ASPIRIN EC 81 MG TABEC PO SCH (08:24)
[2017-07-13] MEDS: DOCUSATE SODIUM 100 MG CAP PO SCH ×2 (08:24→21:50)
[2017-07-13] MEDS: FINASTERIDE 5 MG TAB PO SCH (08:24)
[2017-07-13] MEDS: PRAVASTATIN SOD 40 MG TAB PO SCH (08:25)
[2017-07-13] MEDS: PANTOPRAZOLE SOD 20 MG DELAYED RELEASE TAB PO SCH (08:25)
[2017-07-13] MEDS: SODIUM CHLORIDE 0.9% FLUSH 10 ML FLUSH IV FLUSH SCH ×2 (08:30→21:51)
[2017-07-13] MEDS: FLUTICASONE PROPIONATE 44 MCG/ACT 10.6 GM INHALER INH SCH (08:31)
--- NOTE | 2017-07-13 08:57 | PD.CARD.PN ---
Subjective Subjective Remarks No angina. Feels OK Objective Medications Current Medications Medications (Trade) Dose Ordered Sig/Annamarie Route Start Time Stop Time Status Last Admin (Zofran Inj) 4 mg Q6H PRN IVP 07/10/17 09:30 (Percocet 5-325 Mg) 1 tab Q4H PRN PO 07/10/17 11:15 07/11/17 04:32 (Zetia) 10 mg DAILY PO 07/11/17 09:00 07/13/17 08:24 (Proscar) 5 mg DAILY PO 07/11/17 09:00 07/13/17 08:24 (Flovent Hfa 44 Mcg Inh) 2 puff DAILY INH 07/11/17 09:00 07/13/17 08:31 (Lopressor) 25 mg BID PO 07/10/17 21:00 07/13/17 08:23 (Pravachol) 40 mg DAILY PO 07/11/17 09:00 07/13/17 08:25 (Theragran) 1 tab DAILY PO 07/11/17 09:00 07/13/17 08:23 (Protonix) 20 mg DAILY PO 07/11/17 09:00 07/13/17 08:25 (Norvasc) 10 mg DAILY PO 07/11/17 09:00 07/13/17 08:24 (NS Flush) 2 ml BID IV FLUSH 07/10/17 21:00 07/13/17 08:30 (NS Flush) 2 ml UNSCH PRN IV FLUSH 07/10/17 11:15 Papaverine HCl 60 mg/Nitroglycerin 100 mcg/Diltiazem HCl 100 mg/Sodium Chloride 100 ml @ 0 mls/hr CORE ASSEMBLY SUPERVISOR IRRIGATION 07/10/17 11:15 07/17/17 11:14 Cefazolin Sodium 500 mg/Sodium Chloride 505 ml @ 0 mls/hr CORE ASSEMBLY SUPERVISOR IRRIGATION 07/10/17 11:15 07/17/17 11:14 Cefazolin Sodium/ Dextrose 50 ml @ 100 mls/hr CORE ASSEMBLY SUPERVISOR IV 07/10/17 11:15 07/17/17 11:14 (Lopressor) 12.5 mg CORE ASSEMBLY SUPERVISOR PO 07/10/17 11:15 07/17/17 11:14 (Hibiclens 4% Top Soln) 1 applic CORE ASSEMBLY SUPERVISOR TOPICAL 07/10/17 11:15 07/17/17 11:14 Insulin Human Regular 100 units/ Sodium Chloride 100 ml @ 3 mls/hr TITRATE PRN IV 07/10/17 11:15 07/17/17 11:14 (D50w (Vial) Inj) 50 ml UNSCH PRN IV PUSH 07/10/17 11:15 (Heparin Inj) 5,000 units UNSCH PRN IV PUSH 07/10/17 18:45 (Heparin Inj) 2,500 units UNSCH PRN IV PUSH 07/10/17 18:45 07/12/17 05:14 Heparin Sodium/ Dextrose 250 ml @ 10 mls/hr TITRATE PRN IV 07/10/17 12:45 07/12/17 16:36 (Colace) 100 mg BID PO 07/11/17 10:15 07/13/17 08:24 (Ecotrin Ec) 81 mg DAILY PO 07/12/17 09:00 07/13/17 08:24 Vital Signs / I&O Vital Signs Date Time Temp Pulse Resp B/P (MAP) Pulse Ox O2 Delivery O2 Flow Rate FiO2 07/13/17 07:01 59 07/13/17 06:57 98.0 62 16 113/58 (76) 97 07/13/17 06:00 68 07/13/17 05:00 68 07/13/17 04:00 68 07/13/17 03:00 52 07/13/17 02:00 60 07/13/17 01:00 58 07/13/17 00:00 66 07/12/17 23:00 84 07/12/17 22:00 97.4 59 16 121/56 (77) 96 07/12/17 22:00 68 07/12/17 21:00 60 07/12/17 20:00 97.4 71 16 128/60 (82) 98 07/12/17 20:00 70 07/12/17 20:00 98 Room Air 07/12/17 19:00 70 07/12/17 18:01 68 07/12/17 17:00 68 07/12/17 16:13 66 07/12/17 15:30 98.3 65 18 119/58 (78) 97 07/12/17 15:00 59 07/12/17 14:00 82 07/12/17 13:01 66 07/12/17 12:00 74 07/12/17 11:30 98.1 64 18 154/69 (97) 99 07/12/17 11:00 65 07/12/17 10:00 64 07/12/17 09:00 72 I/O 07/12/17 07/12/17 07/12/17 07/13/17 07/13/17 07/13/17 06:59 14:59 22:59 06:59 14:59 22:59 Intake Total 480 ml 960 ml 240 ml Output Total 825 ml 1325 ml 1100 ml Balance -345 ml -365 ml -860 ml Intake Oral 480 ml 960 ml 240 ml Output Urine Total 825 ml 1325 ml 1100 ml # Bowel Movements 1 0 Physical Exam GENERAL: Well developed, well nourished. No acute distress. HEENT: Jugular venous pressure is normal. CHEST: Lungs clear to auscultation bilaterally. Unlabored respiratory effort. CARDIAC: Regular rate and rhythm without S3, S4, or 1/6 KELVIN ABDOMEN: Soft, nontender, no hepatosplenomegaly. Bowel sounds present. EXTREMITIES: No clubbing, cyanosis, or edema. Right wrist OK Laboratory Laboratory Tests Test 07/12/17 11:50 07/12/17 20:25 07/13/17 06:44 Activated Partial Thromboplast Time 58.9 SEC 51.6 SEC 52.0 SEC White Blood Count 6.8 TH/MM3 Red Blood Count 3.88 MIL/MM3 Hemoglobin 11.4 GM/DL Hematocrit 34.4 % Mean Corpuscular Volume 88.7 FL Mean Corpuscular Hemoglobin 29.5 PG Mean Corpuscular Hemoglobin Concent 33.3 % Red Cell Distribution Width 15.5 % Platelet Count 205 TH/MM3 Mean Platelet Volume 8.3 FL Assessment and Plan Problem List: (1) Angina pectoris ICD Codes: I20.9 - Angina pectoris, unspecified (2) CAD (coronary artery disease) ICD Codes: I25.10 - Atherosclerotic heart disease of [place] coronary artery without angina pectoris (3) Chronic kidney disease ICD Codes: N18.9 - Chronic kidney disease, unspecified (4) Hx pulmonary embolism ICD Codes: Z86.711 - Personal history of pulmonary embolism (5) Personal history of DVT (deep vein thrombosis) ICD Codes: Z86.718 - Personal history of other venous thrombosis and embolism Assessment and Plan CABG later today/ Earl Pratt MD Jul 13, 2017 08:57
[2017-07-13] MEDS ORDERED: HEPARIN SODIUM - IV 10,000 UNITS/10 ML VIAL ONE (09:10)
[2017-07-13] MEDS ORDERED: VANCOMYCIN HCL 1000 MG VIAL ONE (09:12)
[2017-07-13] MEDS ORDERED: PROTAMINE SULFATE 50 MG/5 ML VIAL ONE (09:12)
[2017-07-13] MEDS ORDERED: ceFAZolin 2 GM PREMIX 50 ML ONE (09:13)
[2017-07-13] MEDS ORDERED: HEPARIN SODIUM - SQ 10,000 UNITS/ML VIAL ONE ×2 (09:27→09:41)
[2017-07-13] MEDS ORDERED: fentaNYL CITRATE 250 MCG/5 ML AMP ONE ×2 (10:17)
[2017-07-13] MEDS ORDERED: MIDAZOLAM HCL 5 MG/ML VIAL (1 ML) ONE (10:18)
[2017-07-13] MEDS ORDERED: SODIUM BICARBONATE 8.4% INJ 50 MEQ/50 ML SYR IV ONE (12:00)
[2017-07-13] MEDS ORDERED: CALCIUM CHLORIDE 10% SOLN 1 GRAM/10 ML SYR IV ONE (12:00)
[2017-07-13] MEDS ORDERED: PROTAMINE SULFATE 250 MG/25 ML VIAL IV ONE (12:00)
[2017-07-13] MEDS ORDERED: LIDOCAINE HCL 1% PF 5 ML SYRINGE OTHER ONE (12:00)
[2017-07-13] MEDS ORDERED: VECURONIUM BROMIDE 10 MG VIAL IV ONE (12:00)
[2017-07-13] MEDS ORDERED: FUROSEMIDE 100 MG/10 ML VIAL IV ONE (12:00)
[2017-07-13] MEDS ORDERED: NITROGLYCERIN 50 MG/DEXTROSE 5% SOLN 250 ML BTL IV ONE (12:00)
[2017-07-13] MEDS ORDERED: PHENYLEPH/NS 1000 MCG/10 ML SYR IV ONE (12:00)
[2017-07-13] MEDS ORDERED: DEXMEDETOMIDINE HCL 200 MCG/2 ML VIAL IV ONE (12:00)
[2017-07-13] MEDS ORDERED: HEPARIN SODIUM - SQ 10,000 UNITS/ML VIAL OTHER ONE (12:00)
[2017-07-13] MEDS ORDERED: MAGNESIUM SULFATE 1 GM/2 ML VIAL IV ONE (12:00)
[2017-07-13] MEDS ORDERED: ePHEDrine/NS 25 MG/5 ML SYRINGE IV ONE (12:00)
--- NOTE | 2017-07-13 12:29 | HHI.FF ---
Face to Face Verification Diagnosis: (1) S/P CABG (coronary artery bypass graft) (2) CAD (coronary artery disease) (3) Angina pectoris (4) Chronic kidney disease (5) Personal history of DVT (deep vein thrombosis) (6) Hx pulmonary embolism Home Health Nursing Order: Signs/symptoms of disease process Medication education-adverse effect Wound care and dressing changes Nursing assessment with vital signs Instructions: Heart and Vascular Surgery patients *Special attention to sternal dressing Mandatory frequency Assess and evaluation, 4 days in a row The next week 3X week 2 times a week for 4 weeks 1 time a week for 5 weeks Schedule Heart and Vascular patients for full 60 day certification period Initial visit Review Open Heart Surgery Discharge Instructions (Sternal precautions, Activity, Elastic hose, Incision care, Driving, Incentive spirometry, Smoking, [place], Work and other) Need Betadine to paint incision Medication reconciliation Importance of follow up care/ check on appointments Make calendar record temperature daily When to call [facility] at Home nurse, review instructions, phone list Incentive Spirometry, demonstration Visit 1- Begin discharge instruction for patient family and/ or caregiver using teach back method- Signs and symptoms of infection Disease characteristics Medicines and side effects Foods and nutrition/ appetite Infection control/ hand washing/ hygiene Visit 2- Continue teaching Discharge instructions- include additional information on smoking cessation , sternal dressing (sternal vac) Visit 3- Continue teaching- Cough and deep breathing, incision monitoring. Choose my plate Visit 4- Continue teaching- Discuss limitations Discuss how they are feeling Discuss progress toward goals Remaining visits- continue teaching and monitoring PREVENA Single Use Negative Wound Therapy System Caregiver Instruction Sheet 1. A Prevena dressing system was applied to the chest incision during surgery , to promote wound healing. It works via a suction device (negative pressure wound therapy) to remove low to moderate levels of exudate (drainage) and infectious materials. We recommend that the device stay in place for up to seven days, from day of surgery. 2. Day of Surgery____3/01/22 Day of Removal ____/ 3. The dressing should only be removed by a health dog daycare provider. Please arrange removal of device to coincide with Home Health visit and or with Nursing staff at Rehab 4. If skin reddening or irritation of skin occurs, or excessive drainage, please notify the Cardiovascular Surgeons office at [phone]. 5. Light showering is permissible; however the pump should be disconnected and placed in safe location, where it will not get wet. The dressing should not be exposed to direct spray or submerged in water. No bath tub / shower only. Ensure the end of the tubing attached to the dressing is facing down so that water does not enter the top of the tube. 6. To remove Prevena dressing: press purple button to turn off device / remove the suction. Then disconnect the tubing from the pump. The fixation strips should be stretched away from the skin and the dressing lifted at one corner and peeled back until it has been fully removed. 7. After removal, it is ok to shower daily using liquid dial soap and clean wash cloth, rinse and pat dry, and leave incision open to air dry. For any concerns regarding Prevena dressing, and or wounds, please contact Allyson Ballard, patient navigator at [phone] or notify the Cardiovascular Surgeons office at [phone]. Incentive spirometry Q1 hr x 10, while awake, also use acapella device hourly whole awake Sternal Breast Bone Precautions: NO pushing or pulling, ( pt must use sternal pillow to support chest with all activities and with coughing ( takes up to 3 months breast bone to heal ) Daily incision care: ok to shower daily, no tub bath. Wash all incisions with liquid dial soap, clean wash cloth to each site, rinse and pat dry. Observe for any signs of infection, such as drainage which is dark yellow, [place], green or foul smelling. Immediately report to the surgeon any drainage from the chest incision, or legs, and for any abnormal drainage from the chest tube sites. Notify surgeon if any temp >101.5 degrees F. When specialty dressing removed/ or if you do not have one, continue to shower daily as above, then rinse and pat incision dry and paint with betadine daily x 5 days. Allow steri strips to fall off if you have any. Avoid lotions, creams, salves, oils, etc. for the first month Please see attached forms for additional instructions regarding post Open Heart specialty wound vacuum dressings. ROSALINDA or Prevena , Dressing to be removed by Nursing staff on __07/20/17 F/U appointment: as per DC instructions: PCP in 2 weeks, CV surgeon 2 weeks, Human Resources Office Assistant 3-4 weeks For any questions regarding incisions/ dressing / meds / post op care or above Symptoms, Sunday 8am-5pm Heart & Vascular Surgery Office ( Dr. Casey & Dr. Castro), After Hours / Nights (5pm -8am) Weekends and Holidays Please call [facility] ([facility]) Charge Nurse I have seen patient Roverto Campoverde on 07/13/17. My clinical findings support the need for the requested home health care services because: Deconditioned w/ increased weakness I certify that my clinical findings support that this patient is homebound because: Post-op weakness Zuleyma Parrish Jul 13, 2017 12:29
[2017-07-13] MEDS ORDERED: SODIUM BICARBONATE 8.4% SOLN 50 MEQ/50 ML VIAL IV PUSH PRN ×2 (15:00)
[2017-07-13] MEDS ORDERED: SODIUM CHLORIDE 0.9% FLUSH 10 ML FLUSH IV FLUSH PRN (15:00)
[2017-07-13] MEDS ORDERED: POTASSIUM CHLORIDE 20 MEQ CONTROLLED RELEASE TAB PO PRN ×2 (15:00)
--- NOTE | 2017-07-13 15:06 | PD.OP ---
cc: Blanche Casey MD; Earl Pratt MD Operative Report Date of Surgery: Jul 13, 2017 Preoperative Diagnosis: Postoperative Diagnosis: Procedure: 1. Urgent Off-pump Coronary Artery Bypass Grafting x 3 with Left Internal Mammary Artery (VALDEZ) to the Left Anterior Descending (LAD), reverse saphenous vein graft to the Diagonal 1 (D1) branch of the LAD, reverse saphenous vein graft to the distal Right Coronary Artery (RCA) 2. Right Leg Endoscopic Vein [place] 3. Intraoperative Vein Mapping Surgeon: Blanche Casey Packaging Assembler(s): Laith Patel Operation and Findings: PREPROCEDURE DIAGNOSES 1. Multi-Vessel Coronary Artery Disease. 2. Unstable Angina 3. Chronic Kidney Disease POSTPROCEDURE DIAGNOSES Same SURGICAL PROCEDURE 1. Urgent Off-pump Coronary Artery Bypass Grafting x 3 with Left Internal Mammary Artery (VALDEZ) to the Left Anterior Descending (LAD), reverse saphenous vein graft to the Diagonal 1 (D1) branch of the LAD, reverse saphenous vein graft to the distal Right Coronary Artery (RCA) 2. Right Leg Endoscopic Vein [place] 3. Intraoperative Vein Mapping SURGEON Blanche Casey MD ASSOCIATE MANAGER Mary Ann Patel PA-C ANESTHESIA General endotracheal GASOLINE TRUCK CRANE OPERATOR NARENRDA Self MD PREPARATION ChloraPrep. COUNTS Needle, sponge, and instrument counts were correct. DRAINS Two 32-Maori mediastinal tubes. COMPLICATIONS None. INDICATIONS FOR PROCEDURE The patient is a 86-year-old presenting with chest pain and two-vessel coronary artery disease. He is being brought to the operating room for surgical revascularization therapy. PROCEDURE Patient was brought to the operating room and placed supine on the OR table. Following the induction of adequate general endotracheal anesthesia and placement of appropriate monitoring devices, intraoperative vein mapping was performed which revealed suitable-caliber conduit in the right LE. The patient was then prepped and draped in standard sterile fashion. Next, 2500 units of intravenous heparin was given. Right thigh greater saphenous veins were harvested endoscopically. This appeared to be a good-caliber conduit. Simultaneously, a median sternotomy was performed and the left internal mammary artery dissected free off the posterior sternal table. The patient was systemically heparinized and anticoagulation monitored by serial ACT measurements. The internal mammary artery had good pulsatile flow in it and was a decent-caliber conduit. The pericardium was then divided in the midline, the cradle created and targets analyzed. At this point, all anastomoses were performed in a beating-heart fashion using the [employer] stabilizing system. The left internal mammary artery was anastomosed to the distal LAD (2 mm) in an end- to-side fashion using 7-0 Prolene. The next segment was anastomosed to the D1 ( 2 mm) in an end-to-side fashion using a running 7-0 Prolene. The final segment was anastomosed to the distal RCA (2.5 mm) in an end-to-side fashion using a running 7-0 Prolene. The proximal anastomoses were then constructed to the ascending aorta in a running manner using 6-0 Prolene. All anastomotic sites were inspected and appeared to be hemostatic and patent. Protamine solution was given. Strict hemostasis was assured. The closure was undertaken. 2 chest tubes were placed. The pericardium was reapproximated in the midline. The sternum was approximated using sternal wires. The muscular and fascial layer were then closed in 3 layers. The endoscopic vein harvest sites were closed in 2 layers. The patient tolerated the procedure well and was transferred to CVICU in stable condition. Blanche Casey MD Jul 13, 2017 15:06
[2017-07-13] MEDS ORDERED: ACETAMINOPHEN 325 MG TAB PO PRN (16:00)
[2017-07-13] MEDS ORDERED: CALCIUM CHLORIDE INJ 1 GM in SODIUM CHLORIDE 0.9% INJ 100 ML IV PRN ×2 (16:00→23:00)
[2017-07-13] MEDS ORDERED: MORPHINE SULFATE 2 MG/ML INJ IV PUSH PRN (16:00)
[2017-07-13] MEDS ORDERED: ACETAMINOPHEN 650 MG SUPP RECTAL PRN (16:00)
[2017-07-13] MEDS ORDERED: ALBUMIN 5% INJ 250 ML IV PRN (16:00)
[2017-07-13] MEDS ORDERED: CALCIUM CHLORIDE 10% 1 GRAM/10 ML VIAL IV PUSH PRN (16:00)
[2017-07-13] MEDS ORDERED: POTASSIUM CHLOR 20 MEQ PREMIX 100 ML IV PRN ×4 (16:00→23:00)
[2017-07-13] MEDS ORDERED: RESP: ALBUTEROL 2.5 MG/IPRATROPIUM 0.5 MG NEB (PRN) NEB (16:00)
--- NOTE | 2017-07-13 16:10 | RADRPT ---
EXAM DATE/TIME: 07/13/2017 15:48 [facility] COMPARISON: CHEST SINGLE AP, July 10, 2017, 12:09. INDICATIONS : Post op CABG MEDICAL HISTORY : Hypertension. pulmonary embolism, blood clot left leg, hx of kidney cancer, renal carcinoma SURGICAL HISTORY : Cholecystectomy. angioplasty, turp, left radical nephrectomy ENCOUNTER: Initial ACUITY: 1 day PAIN SCORE: Non-responsive. LOCATION: Bilateral chest FINDINGS: The heart is at the upper limits of normal in size. The endotracheal tube, right jugular line and paco ogastric tube are in satisfactory position. There is a mediastinal drain and left-sided chest tube. T he lungs are clear. No pneumothorax is seen. CONCLUSION: 1. Support equipment in good position. 2. Stable postoperative chest. Alex Rubio MD on July 13, 2017 at 16:07 Board Certified Radiologist. This report was verified electronically.
[2017-07-13] MEDS ORDERED: DEXTROSE 50% IN WATER 50 ML VIAL(D50) IV PUSH PRN (16:15)
[2017-07-13] MEDS ORDERED: MEPERIDINE HCL 25 MG/ML VIAL IV PUSH PRN (16:30)
[2017-07-13] MEDS ORDERED: MAGNESIUM SULFATE INJ 2 GM in SODIUM CHLORIDE 0.9% INJ 100 ML IV PRN ×4 (16:30)
[2017-07-13] MEDS ORDERED: RESP: RACEPINEPHRINE 2.25% 0.5 ML NEB NEB PRN (16:30)
[2017-07-13] MEDS ORDERED: hydrALAZINE HCL 20 MG/ML VIAL IV PUSH PRN (16:30)
[2017-07-13] MEDS ORDERED: ONDANSETRON HCL 4 MG/2 ML VIAL IV PUSH PRN (16:30)
[2017-07-13] MEDS ORDERED: METOPROLOL TARTRATE 5 MG/5 ML VIAL IV PUSH PRN (16:30)
[2017-07-13] MEDS ORDERED: LACTATED RINGER'S 1000 ML INJ 500 ML IV PRN (16:30)
[2017-07-13] MEDS: ACETAMINOPHEN 1000 MG/100 ML 100 ML IV SCH ×2 (16:49→21:50)
[2017-07-13] MEDS ORDERED: PHENYLEPHRINE INJ 40 MG in DEXTROSE 5% IN WATE 500 ML INJ 496 ML IV PRN ×2 (17:00)
[2017-07-13] MEDS ORDERED: DOPamine 800 MG/500 ML INJ 500 ML IV PRN (17:00)
[2017-07-13] MEDS ORDERED: NITROGLYCERIN-D5W 50 MG/250 ML 250 ML IV PRN (17:00)
[2017-07-13] MEDS ORDERED: INSULIN REGULAR (IV INFUSION) 100 UNITS in SODIUM CHLORIDE 0.9% INJ 99 ML IV PRN (17:00)
[2017-07-13] MEDS ORDERED: CLEVIDIPINE INJ 50 ML IV PRN (17:00)
[2017-07-13] MEDS ORDERED: DEXMEDETOMIDINE INJ 200 MCG in SODIUM CHLORIDE 0.9% INJ 50 ML IV PRN (17:00)
[2017-07-13] MEDS ORDERED: Post-op Orders (for Pharmacy) OTHER ONE (17:00)
[2017-07-13] MEDS ORDERED: DOBUTamine PREMIX DRIP 250 ML IV PRN (17:00)
[2017-07-13] MEDS ORDERED: ceFAZolin 2 GM PREMIX 50 ML IV ONE (17:15)
[2017-07-13] MEDS: RESP: ALBUTEROL 2.5 MG/IPRATROPIUM 0.5 MG NEB (SCH) NEB ×2 (17:18→20:46)
[2017-07-13] MEDS ORDERED: ceFAZolin 2 GM PREMIX 50 ML IV SCH (19:00)
[2017-07-13] MEDS: ceFAZolin 2 GM PREMIX 50 ML IV SCH (21:50)
[2017-07-14] VITALS (8 sets, daily range): BP systolic 105–142; BP diastolic 39–58; PULSE 67–93; RESP 16–19; TEMP 97.4–99.1; O2SAT 92–97
[2017-07-14] MEDS: oxyCODONE/ACETAMINOPHEN 5 MG/325 MG TAB PO PRN ×3 (02:40→12:38)
[2017-07-14] MEDS: RESP: ALBUTEROL 2.5 MG/IPRATROPIUM 0.5 MG NEB (SCH) NEB ×4 (02:52→19:49)
[2017-07-14] MEDS: ACETAMINOPHEN 1000 MG/100 ML 100 ML IV SCH ×2 (04:28→10:06)
--- NOTE | 2017-07-14 04:55 | RADRPT ---
EXAM DATE/TIME: 07/14/2017 04:13 [facility] COMPARISON: CHEST SINGLE AP, July 13, 2017, 15:48. INDICATIONS : Shortness of breath, possible pulmonary disease. MEDICAL HISTORY : Hypertension. Deep venous thrombosis. renal carcinoma PE SURGICAL HISTORY : Cholecystectomy. Nephrectomy, left. CABG. ENCOUNTER: Subsequent ACUITY: 4 - 6 days PAIN SCORE: 9/10 LOCATION: Bilateral chest FINDINGS: Right lung remains clear. Mild basilar atelectasis on the left not significantly changed. No large ef fusion. No pneumothorax. Patient has been extubated. Nasogastric tube also out. A left chest tube and a mediastinal drain jeison in in place. No pneumothorax. Right internal jugular central venous catheter again seen, tip in the superior vena cava. CONCLUSION: 1. Endotracheal tube and nasogastric tube removed. 2. Other lines and tubes unchanged, including a left chest tube and a mediastinal drain. No pneumotho rax. 3. Mild left base atelectasis not significantly changed. Roverto Campuzano MD on July 14, 2017 at 4:52 Board Certified Radiologist. This report was verified electronically.
[2017-07-14 05:12] LABS: HEMATOCRIT 25.9 % (39.0-51.0); HEMOGLOBIN 8.8 GM/DL (13.0-17.0); MEAN CELL VOLUME 88.4 FL (80.0-100.0); MEAN CORPUSCULAR HEMOGLOBIN 30.2 PG (27.0-34.0); MEAN CORPUSCULAR HGB CONC 34.1 % (32.0-36.0); MEAN PLATELET VOLUME 8.4 FL (7.0-11.0); PLATELET COUNT 166 TH/MM3 (150-450); RED BLOOD COUNT 2.93 MIL/MM3 (4.50-5.90); RED CELL DISTRIBUTION WIDTH 15.8 % (11.6-17.2)
[2017-07-14 05:30] LABS: BICARBONATE 24.4 MEQ/L (21.0-32.0); CALCIUM 8.5 MG/DL (8.5-10.1); CREATININE 1.02 MG/DL (0.60-1.30)
[2017-07-14] MEDS: PANTOPRAZOLE SOD 40 MG DELAYED RELEASE TAB PO SCH (06:26)
[2017-07-14] MEDS: ceFAZolin 2 GM PREMIX 50 ML IV SCH ×3 (06:26→22:27)
[2017-07-14] MEDS: SODIUM CHLORIDE 0.9% FLUSH 10 ML FLUSH IV FLUSH SCH ×2 (08:31→22:27)
[2017-07-14] MEDS: ASPIRIN 81 MG CHEW TAB PO SCH (08:31)
[2017-07-14] MEDS: METOPROLOL TARTRATE 25 MG TAB PO SCH ×2 (08:34→22:26)
[2017-07-14] MEDS: DOCUSATE SODIUM 100 MG CAP PO SCH ×3 (08:34→22:27)
[2017-07-14] MEDS: MULTIVITAMIN TAB PO SCH (08:36)
[2017-07-14] MEDS: EZETIMIBE 10 MG TAB PO SCH (08:37)
[2017-07-14] MEDS: FINASTERIDE 5 MG TAB PO SCH (08:39)
[2017-07-14] MEDS: FLUTICASONE PROPIONATE 44 MCG/ACT 10.6 GM INHALER INH SCH (09:00)
[2017-07-14] MEDS: PRAVASTATIN SOD 40 MG TAB PO SCH (09:00)
[2017-07-14] MEDS ORDERED: CLOPIDOGREL 75 MG TAB PO SCH (09:00)
--- NOTE | 2017-07-14 09:49 | PD.CAR.PN ---
CVT Progress Note Subjective/Hospital Course: 86/ male patient of Dr. Earl Pratt and Dr. Julia Poole who has had a history of chest tightness in his neck off and on for the past year, worsening over the last couple of months, more noticeable with exertion. He has had a history of coronary artery disease with prior PTCA to the RCA in 1991. He underwent cardiac catheterization today which showed an ejection fraction of 60% , left main disease 20%, proximal LAD 90%, mid distal LAD 75%, the diagonal was 80%, the RCA 80%. We were consulted to evaluate for coronary artery bypass grafting times 3, LAD, diagonal and RCA. He had a prior echocardiogram back in 2014 that at that time showed an ejection fraction of 63%, some diastolic dysfunction and no valvular disease. PAST MEDICAL HISTORY: Includes coronary artery disease, history of DVT, pulmonary emboli in 2010 with a DVT in 2011. He has since been on Coumadin, hypertension, hyperlipidemia, history of renal cancer, skin cancer. 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 require chemo or radiation, TURP of the prostate 07/11 carotid US ok vein mapping : ok , no DVT no chest pain last pm, family concerned about pt having some forgetfulness no cognitive impairment noted remains on Heparin gtt, for surgery on Sunday family updated 07/12 no chest pain during the night , doing well for surgery in am 07/13 SURGICAL PROCEDURE 1. Urgent Off-pump Coronary Artery Bypass Grafting x 3 with Left Internal Mammary Artery (VALDEZ) to the Left Anterior Descending (LAD), reverse saphenous vein graft to the Diagonal 1 (D1) branch of the LAD, reverse saphenous vein graft to the distal Right Coronary Artery (RCA) 2. Right Leg Endoscopic Vein [place] 3. Intraoperative Vein Mapping 07/14 Doing well. Ambulating well Transfer CPCU Maintain CT Beta [place] Objective: Vital Signs Date Time Temp Pulse Resp B/P (MAP) Pulse Ox O2 Delivery O2 Flow Rate FiO2 07/14/17 09:04 96 Nasal Cannula 2.00 07/14/17 07:32 96 Nasal Cannula 2.00 07/14/17 07:32 70 07/14/17 07:32 98.2 67 16 105/39 (61) 96 110/42 (64) 07/14/17 07:26 16 07/14/17 05:04 16 07/14/17 05:04 16 07/14/17 03:00 73 07/14/17 03:00 98.1 73 16 122/49 (73) 97 127/53 (77) 07/14/17 03:00 96 Nasal Cannula 2.00 07/13/17 23:00 76 07/13/17 23:00 98.2 77 16 122/50 (74) 96 127/35 (65) 07/13/17 23:00 96 Nasal Cannula 2.00 07/13/17 21:00 98.6 07/13/17 20:51 98 Nasal Cannula 3.00 07/13/17 19:00 98.1 76 16 120/42 (68) 97 116/55 (75) 07/13/17 19:00 97 Nasal Cannula 4.00 07/13/17 19:00 75 07/13/17 19:00 76 116/55 07/13/17 18:40 96 Nasal Cannula 3 07/13/17 18:40 96 Nasal Cannula 3.00 07/13/17 17:51 98.6 07/13/17 17:44 73 93/48 07/13/17 15:59 98.6 07/13/17 15:35 97.7 71 11 112/47 (68) 97 100/47 (64) 07/13/17 15:35 64 07/13/17 15:35 40 07/13/17 15:25 97 40 07/13/17 10:01 60 Labs: Laboratory Tests Test 07/14/17 04:40 White Blood Count 11.0 TH/MM3 (4.0-11.0) Red Blood Count 2.93 MIL/MM3 (4.50-5.90) Hemoglobin 8.8 GM/DL (13.0-17.0) Hematocrit 25.9 % (39.0-51.0) Mean Corpuscular Volume 88.4 FL (80.0-100.0) Mean Corpuscular Hemoglobin 30.2 PG (27.0-34.0) Mean Corpuscular Hemoglobin Concent 34.1 % (32.0-36.0) Red Cell Distribution Width 15.8 % (11.6-17.2) Platelet Count 166 TH/MM3 (150-450) Mean Platelet Volume 8.4 FL (7.0-11.0) Activated Partial Thromboplast Time 24.6 SEC (24.3-30.1) Blood Urea Nitrogen 15 MG/DL (7-18) Creatinine 1.02 MG/DL (0.60-1.30) Random Glucose 107 MG/DL (74-106) Calcium Level 8.5 MG/DL (8.5-10.1) Magnesium Level 2.0 MG/DL (1.5-2.5) Sodium Level 140 MEQ/L (136-145) Potassium Level 4.5 MEQ/L (3.5-5.1) Chloride Level 107 MEQ/L (98-107) Carbon Dioxide Level 24.4 MEQ/L (21.0-32.0) Anion Gap 9 MEQ/L (5-15) Estimat Glomerular Filtration Rate 70 ML/MIN (>89) Result Diagram: 07/14/1743907/14/17439 (1) Angina pectoris (2) CAD (coronary artery disease) (3) Chronic kidney disease (4) Hx pulmonary embolism (5) Personal history of DVT (deep vein thrombosis) Blanche Casey MD Jul 14, 2017 09:49
[2017-07-14] MEDS ORDERED: BISACODYL 10 MG SUPP RECTAL PRN (10:00)
[2017-07-14] MEDS ORDERED: DEXTROSE 50% IN WATER 50 ML VIAL(D50) IV PUSH PRN (10:00)
[2017-07-14] MEDS ORDERED: SOD PHOSPHATE/SOD BIPHOSPHATE (ADULT) ENEMA 133ML RECTAL PRN (10:00)
[2017-07-14] MEDS ORDERED: GLUCAGON 1 MG/ML VIAL OTHER PRN (10:00)
[2017-07-14] MEDS: INSULIN ASPART SUPPLEMENTAL SCALE SQ SCH ×4 (10:00→22:00)
[2017-07-14] MEDS: amLODIPine BESYLATE 5 MG TAB PO SCH (10:06)
[2017-07-14] MEDS: KETOROLAC TROMETHAMINE 30 MG/ML (IVP) VIAL IV PUSH PRN ×2 (16:11→22:47)
[2017-07-14] MEDS: SENNOSIDES 8.6 MG TAB PO SCH (22:26)
--- NOTE | 2017-07-14 23:47 | EKG ---
Date Performed: 07/14/2017 Time Performed: 04:18:36 PTAGE: 86 years EKG: Sinus rhythm rSr'(V1) - probable normal variant Normal ECG PREVIOUS TRACING : 07/11/2017 11.21 Since the prior tracing, there has been no significant abdi DOCTOR: Delano Mejía Interpretating Date/Time 07/14/2017 23:45:52
[2017-07-15] VITALS (28 sets, daily range): BP systolic 107–116; BP diastolic 53–57; PULSE 73–102; RESP 18–19; TEMP 98.2–99; O2SAT 92–97
[2017-07-15] MEDS: INSULIN ASPART SUPPLEMENTAL SCALE SQ SCH ×6 (01:49→20:43)
[2017-07-15] MEDS: RESP: ALBUTEROL 2.5 MG/IPRATROPIUM 0.5 MG NEB (SCH) NEB ×4 (05:30→20:38)
[2017-07-15] MEDS: PANTOPRAZOLE SOD 40 MG DELAYED RELEASE TAB PO SCH (05:41)
[2017-07-15] MEDS: ceFAZolin 2 GM PREMIX 50 ML IV SCH (05:41)
[2017-07-15 05:54] LABS: BASOPHIL % 0.3 % (0.0-2.0); EOSINOPHIL # 0.2 TH/MM3 (0-0.4); EOSINOPHIL % 2.7 % (0.0-4.0); HEMATOCRIT 22.9 % (39.0-51.0); HEMOGLOBIN 7.7 GM/DL (13.0-17.0); LYMPH % 15.4 % (9.0-44.0); LYMPHOCYTE # 1.3 TH/MM3 (1.0-4.8); MEAN CELL VOLUME 89.2 FL (80.0-100.0); MEAN CORPUSCULAR HEMOGLOBIN 30.2 PG (27.0-34.0); MEAN CORPUSCULAR HGB CONC 33.8 % (32.0-36.0); MEAN PLATELET VOLUME 8.5 FL (7.0-11.0); MONO % 11.6 % (0.0-8.0); PLATELET COUNT 143 TH/MM3 (150-450); RED BLOOD COUNT 2.57 MIL/MM3 (4.50-5.90); RED CELL DISTRIBUTION WIDTH 15.8 % (11.6-17.2); WHITE BLOOD COUNT 8.6 TH/MM3 (4.0-11.0)
[2017-07-15] MEDS: KETOROLAC TROMETHAMINE 30 MG/ML (IVP) VIAL IV PUSH PRN (05:54)
[2017-07-15 06:20] LABS: BICARBONATE 26.4 MEQ/L (21.0-32.0); CALCIUM 8.5 MG/DL (8.5-10.1); CREATININE 1.23 MG/DL (0.60-1.30); MAGNESIUM 2.4 MG/DL (1.5-2.5)
[2017-07-15] MEDS: DOCUSATE SODIUM 100 MG CAP PO SCH ×4 (09:00→20:44)
[2017-07-15] MEDS: POLYETHYLENE GLYCOL 17 GM PKG PO SCH (09:38)
[2017-07-15] MEDS: MAGNESIUM HYDROXIDE SUSP 30 ML CUP PO SCH (09:40)
[2017-07-15] MEDS: FINASTERIDE 5 MG TAB PO SCH (09:41)
[2017-07-15] MEDS: ASPIRIN 81 MG CHEW TAB PO SCH (09:41)
[2017-07-15] MEDS: PRAVASTATIN SOD 40 MG TAB PO SCH (09:41)
[2017-07-15] MEDS: METOPROLOL TARTRATE 25 MG TAB PO SCH ×2 (09:42→20:43)
[2017-07-15] MEDS: MULTIVITAMIN TAB PO SCH (09:42)
[2017-07-15] MEDS: amLODIPine BESYLATE 5 MG TAB PO SCH (09:42)
[2017-07-15] MEDS: MULTIVITAMINS/MINERALS THERAPEUTIC TAB PO SCH (09:42)
[2017-07-15] MEDS: SODIUM CHLORIDE 0.9% FLUSH 10 ML FLUSH IV FLUSH SCH ×2 (09:43→20:43)
[2017-07-15] MEDS: FLUTICASONE PROPIONATE 44 MCG/ACT 10.6 GM INHALER INH SCH (10:10)
[2017-07-15] MEDS: EZETIMIBE 10 MG TAB PO SCH (10:10)
--- NOTE | 2017-07-15 10:36 | PD.CAR.PN ---
CVT Progress Note Subjective/Hospital Course: 86/ male patient of Dr. Earl Pratt and Dr. Julia Poole who has had a history of chest tightness in his neck off and on for the past year, worsening over the last couple of months, more noticeable with exertion. He has had a history of coronary artery disease with prior PTCA to the RCA in 1991. He underwent cardiac catheterization today which showed an ejection fraction of 60% , left main disease 20%, proximal LAD 90%, mid distal LAD 75%, the diagonal was 80%, the RCA 80%. We were consulted to evaluate for coronary artery bypass grafting times 3, LAD, diagonal and RCA. He had a prior echocardiogram back in 2014 that at that time showed an ejection fraction of 63%, some diastolic dysfunction and no valvular disease. PAST MEDICAL HISTORY: Includes coronary artery disease, history of DVT, pulmonary emboli in 2010 with a DVT in 2011. He has since been on Coumadin, hypertension, hyperlipidemia, history of renal cancer, skin cancer. 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 require chemo or radiation, TURP of the prostate 07/11 carotid US ok vein mapping : ok , no DVT no chest pain last pm, family concerned about pt having some forgetfulness no cognitive impairment noted remains on Heparin gtt, for surgery on Sunday family updated 07/12 no chest pain during the night , doing well for surgery in am 07/13 SURGICAL PROCEDURE 1. Urgent Off-pump Coronary Artery Bypass Grafting x 3 with Left Internal Mammary Artery (VALDEZ) to the Left Anterior Descending (LAD), reverse saphenous vein graft to the Diagonal 1 (D1) branch of the LAD, reverse saphenous vein graft to the distal Right Coronary Artery (RCA) 2. Right Leg Endoscopic Vein [place] 3. Intraoperative Vein Mapping 07/14 Doing well. Ambulating well Transfer CPCU Maintain CT Beta f[place]er[place] 07/[address] for another day Ambulate and IS Objective: Vital Signs Date Time Temp Pulse Resp B/P (MAP) Pulse Ox O2 Delivery O2 Flow Rate FiO2 07/15/17 10:13 94 Nasal Cannula 3.00 07/15/17 06:54 18 07/15/17 06:00 81 07/15/17 05:00 79 07/15/17 04:00 80 07/15/17 03:00 98.3 78 18 116/54 (74) 97 07/15/17 03:00 73 07/15/17 03:00 95 Nasal Cannula 4.00 07/15/17 02:00 74 07/15/17 01:00 76 07/15/17 00:00 80 07/14/17 23:00 84 07/14/17 23:00 94 Nasal Cannula 4.00 07/14/17 23:00 99.1 85 19 129/58 (81) 94 07/14/17 19:50 97 Nasal Cannula 2.00 07/14/17 19:00 98.5 93 16 108/55 (72) 92 07/14/17 19:00 82 07/14/17 19:00 92 Nasal Cannula 2.00 07/14/17 16:28 95 2.00 07/14/17 16:22 67 07/14/17 16:22 97.6 82 18 142/57 (85) 95 07/14/17 11:17 75 07/14/17 11:17 97.4 78 16 125/53 (77) 94 Arterial Line 07/14/17 11:17 94 Room Air Labs: Laboratory Tests Test 07/15/17 04:03 White Blood Count 8.6 TH/MM3 (4.0-11.0) Red Blood Count 2.57 MIL/MM3 (4.50-5.90) Hemoglobin 7.7 GM/DL (13.0-17.0) Hematocrit 22.9 % (39.0-51.0) Mean Corpuscular Volume 89.2 FL (80.0-100.0) Mean Corpuscular Hemoglobin 30.2 PG (27.0-34.0) Mean Corpuscular Hemoglobin Concent 33.8 % (32.0-36.0) Red Cell Distribution Width 15.8 % (11.6-17.2) Platelet Count 143 TH/MM3 (150-450) Mean Platelet Volume 8.5 FL (7.0-11.0) Neutrophils (%) (Auto) 70.0 % (16.0-70.0) Lymphocytes (%) (Auto) 15.4 % (9.0-44.0) Monocytes (%) (Auto) 11.6 % (0.0-8.0) Eosinophils (%) (Auto) 2.7 % (0.0-4.0) Basophils (%) (Auto) 0.3 % (0.0-2.0) Neutrophils # (Auto) 6.0 TH/MM3 (1.8-7.7) Lymphocytes # (Auto) 1.3 TH/MM3 (1.0-4.8) Monocytes # (Auto) 1.0 TH/MM3 (0-0.9) Eosinophils # (Auto) 0.2 TH/MM3 (0-0.4) Basophils # (Auto) 0.0 TH/MM3 (0-0.2) CBC Comment DIFF FINAL Differential Comment Blood Urea Nitrogen 22 MG/DL (7-18) Creatinine 1.23 MG/DL (0.60-1.30) Random Glucose 93 MG/DL (74-106) Calcium Level 8.5 MG/DL (8.5-10.1) Magnesium Level 2.4 MG/DL (1.5-2.5) Sodium Level 139 MEQ/L (136-145) Potassium Level 4.4 MEQ/L (3.5-5.1) Chloride Level 105 MEQ/L (98-107) Carbon Dioxide Level 26.4 MEQ/L (21.0-32.0) Anion Gap 8 MEQ/L (5-15) Estimat Glomerular Filtration Rate 56 ML/MIN (>89) Result Diagram: 07/15/1740207/15/17402 (1) Angina pectoris (2) CAD (coronary artery disease) (3) Chronic kidney disease (4) Hx pulmonary embolism (5) Personal history of DVT (deep vein thrombosis) Blanche Casey MD Jul 15, 2017 10:36
[2017-07-15] MEDS: oxyCODONE/ACETAMINOPHEN 5 MG/325 MG TAB PO PRN ×2 (14:09→20:43)
[2017-07-15] MEDS: SENNOSIDES 8.6 MG TAB PO SCH (20:42)
[2017-07-16] VITALS (29 sets, daily range): BP systolic 112–126; BP diastolic 51–60; PULSE 73–103; RESP 18–20; TEMP 98.2–99.2; O2SAT 91–96
[2017-07-16] MEDS: RESP: ALBUTEROL 2.5 MG/IPRATROPIUM 0.5 MG NEB (SCH) NEB ×4 (03:14→20:56)
[2017-07-16 04:28] LABS: HEMATOCRIT 22.4 % (39.0-51.0); HEMOGLOBIN 7.4 GM/DL (13.0-17.0); MEAN CELL VOLUME 90.1 FL (80.0-100.0); MEAN CORPUSCULAR HEMOGLOBIN 29.8 PG (27.0-34.0); MEAN CORPUSCULAR HGB CONC 33.1 % (32.0-36.0); MEAN PLATELET VOLUME 8.4 FL (7.0-11.0); PLATELET COUNT 145 TH/MM3 (150-450); RED BLOOD COUNT 2.48 MIL/MM3 (4.50-5.90); RED CELL DISTRIBUTION WIDTH 16.6 % (11.6-17.2); WHITE BLOOD COUNT 7.6 TH/MM3 (4.0-11.0)
[2017-07-16] MEDS: PANTOPRAZOLE SOD 40 MG DELAYED RELEASE TAB PO SCH (05:37)
[2017-07-16] MEDS: INSULIN ASPART SUPPLEMENTAL SCALE SQ SCH ×4 (08:00→21:00)
[2017-07-16] MEDS: MULTIVITAMINS/MINERALS THERAPEUTIC TAB PO SCH (08:50)
[2017-07-16] MEDS: DOCUSATE SODIUM 100 MG CAP PO SCH ×3 (08:50→20:52)
[2017-07-16] MEDS: METOPROLOL TARTRATE 25 MG TAB PO SCH ×2 (08:50→20:53)
[2017-07-16] MEDS: amLODIPine BESYLATE 5 MG TAB PO SCH (08:50)
[2017-07-16] MEDS: MULTIVITAMIN TAB PO SCH (08:50)
[2017-07-16] MEDS: ASPIRIN 81 MG CHEW TAB PO SCH (08:50)
[2017-07-16] MEDS: FINASTERIDE 5 MG TAB PO SCH (08:50)
[2017-07-16] MEDS: EZETIMIBE 10 MG TAB PO SCH (08:50)
[2017-07-16] MEDS: MAGNESIUM HYDROXIDE SUSP 30 ML CUP PO SCH (08:51)
[2017-07-16] MEDS: SODIUM CHLORIDE 0.9% FLUSH 10 ML FLUSH IV FLUSH SCH ×2 (08:51→20:53)
[2017-07-16] MEDS: PRAVASTATIN SOD 40 MG TAB PO SCH (08:51)
[2017-07-16] MEDS: FLUTICASONE PROPIONATE 44 MCG/ACT 10.6 GM INHALER INH SCH (08:51)
[2017-07-16] MEDS: POLYETHYLENE GLYCOL 17 GM PKG PO SCH (08:51)
[2017-07-16] MEDS: oxyCODONE/ACETAMINOPHEN 5 MG/325 MG TAB PO PRN (08:56)
--- NOTE | 2017-07-16 11:01 | RSPPFT ---
DATE OF PROCEDURE: 07/10/17 COMMENTS: Spirometry demonstrates an FEV1 of 1.7 at 72% of predicted, FVC of 2.5 at 83%, FEF2 25-75 is 43%. Post-bronchodilator study was not conducted. Flow volume loops suggest an obstructive pattern. IMPRESSION: 1. Mild to moderate obstructive disease.
--- NOTE | 2017-07-16 17:24 | PD.CAR.PN ---
CVT Progress Note Subjective/Hospital Course: 86/ male patient of Dr. Earl Pratt and Dr. Julia Poole who has had a history of chest tightness in his neck off and on for the past year, worsening over the last couple of months, more noticeable with exertion. He has had a history of coronary artery disease with prior PTCA to the RCA in 1991. He underwent cardiac catheterization today which showed an ejection fraction of 60% , left main disease 20%, proximal LAD 90%, mid distal LAD 75%, the diagonal was 80%, the RCA 80%. We were consulted to evaluate for coronary artery bypass grafting times 3, LAD, diagonal and RCA. He had a prior echocardiogram back in 2014 that at that time showed an ejection fraction of 63%, some diastolic dysfunction and no valvular disease. PAST MEDICAL HISTORY: Includes coronary artery disease, history of DVT, pulmonary emboli in 2010 with a DVT in 2011. He has since been on Coumadin, hypertension, hyperlipidemia, history of renal cancer, skin cancer. 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 require chemo or radiation, TURP of the prostate 07/11 carotid US ok vein mapping : ok , no DVT no chest pain last pm, family concerned about pt having some forgetfulness no cognitive impairment noted remains on Heparin gtt, for surgery on Sunday family updated 07/12 no chest pain during the night , doing well for surgery in am 07/13 SURGICAL PROCEDURE 1. Urgent Off-pump Coronary Artery Bypass Grafting x 3 with Left Internal Mammary Artery (VALDEZ) to the Left Anterior Descending (LAD), reverse saphenous vein graft to the Diagonal 1 (D1) branch of the LAD, reverse saphenous vein graft to the distal Right Coronary Artery (RCA) 2. Right Leg Endoscopic Vein [place] 3. Intraoperative Vein Mapping 07/14 Doing well. Ambulating well Transfer CPCU Maintain CT Beta f[place]er[place] 07/[address] for another day Ambulate and IS 07/16 chest tubes removed without difficulty gentle diuresis remains in NSR start ferrous sulfate Objective: GENERAL: A&O x 3 SKIN: Warm and dry. prevena dressing to chest , incision intact right leg HEAD: Normocephalic. EYES: No scleral icterus. No injection or drainage. NECK: Supple, trachea midline. No JVD or lymphadenopathy. CARDIOVASCULAR: Regular rate and rhythm without murmurs, gallops, or rubs. RESPIRATORY: Breath sounds equal bilaterally. No accessory muscle use. GASTROINTESTINAL: Abdomen soft, non-tender, nondistended. MUSCULOSKELETAL: No cyanosis, or edema. BACK: Nontender without obvious deformity. No CVA tenderness. Vital Signs Date Time Temp Pulse Resp B/P (MAP) Pulse Ox O2 Delivery O2 Flow Rate FiO2 07/16/17 17:00 94 07/16/17 16:00 89 07/16/17 15:36 98.2 85 18 115/58 (77) 93 07/16/17 15:17 93 Room Air 07/16/17 15:00 103 07/16/17 14:00 75 07/16/17 13:00 78 07/16/17 12:00 82 07/16/17 11:08 93 Nasal Cannula 2.00 07/16/17 11:08 98.5 77 18 112/58 (76) 93 07/16/17 11:00 73 07/16/17 10:00 79 07/16/17 09:03 92 Nasal Cannula 3.00 07/16/17 09:00 98 07/16/17 08:00 85 07/16/17 07:23 98.7 81 18 126/60 (82) 96 07/16/17 07:23 96 Nasal Cannula 3.00 07/16/17 07:00 77 07/16/17 06:00 82 07/16/17 05:00 90 07/16/17 04:00 80 07/16/17 03:00 98.4 77 18 112/52 (72) 95 07/16/17 03:00 77 07/16/17 03:00 95 Nasal Cannula 4.00 07/16/17 02:00 83 07/16/17 01:00 76 07/16/17 00:00 88 07/15/17 23:00 102 07/15/17 23:00 95 Nasal Cannula 4.00 07/15/17 23:00 99.0 93 18 115/57 (76) 95 07/15/17 22:00 94 07/15/17 21:43 18 07/15/17 21:00 92 07/15/17 20:39 92 High Flow Nasal Cannula 3.00 07/15/17 20:00 88 07/15/17 19:00 96 Nasal Cannula 4.00 07/15/17 19:00 98.2 98 19 108/55 (72) 94 07/15/17 19:00 93 07/15/17 18:00 97 Result Diagram: 07/16/17 0350 07/15/17 0403 (1) Angina pectoris (2) CAD (coronary artery disease) Plan: ASA, statin BB 3 OOB pulm toileting CM to eval for HHC (3) Chronic kidney disease Plan: stable (4) Hx pulmonary embolism Plan: resume coumadin (5) Personal history of DVT (deep vein thrombosis) Zuleyma Parrish Jul 16, 2017 17:24
[2017-07-16] MEDS ORDERED: FUROSEMIDE 40 MG/4 ML VIAL IV PUSH ONE (17:30)
[2017-07-16] MEDS ORDERED: POTASSIUM CHLORIDE 20 MEQ CONTROLLED RELEASE TAB PO ONE (17:30)
[2017-07-16] MEDS: SENNOSIDES 8.6 MG TAB PO SCH (20:53)
[2017-07-17] VITALS (19 sets, daily range): BP systolic 105–144; BP diastolic 52–67; PULSE 72–114; RESP 18; TEMP 98.4–98.7; O2SAT 94–99
[2017-07-17] MEDS: oxyCODONE/ACETAMINOPHEN 5 MG/325 MG TAB PO PRN (00:35)
[2017-07-17 01:56] LABS: PROTHROMBIN TIME - PATIENT 9.9 SEC (9.8-11.6)
[2017-07-17] MEDS: RESP: ALBUTEROL 2.5 MG/IPRATROPIUM 0.5 MG NEB (SCH) NEB ×2 (03:13→10:48)
--- NOTE | 2017-07-17 05:17 | RADRPT ---
EXAM DATE/TIME: 07/17/2017 04:20 [facility] COMPARISON: CHEST SINGLE AP, July 14, 2017, 4:13. INDICATIONS : Short of breath. MEDICAL HISTORY : Hypertension. Deep venous thrombosis. renal carcinoma PE SURGICAL HISTORY : Cholecystectomy. Nephrectomy, left. CABG. ENCOUNTER: Subsequent ACUITY: 4 - 6 days PAIN SCORE: 0/10 LOCATION: Bilateral chest FINDINGS: Single portable frontal view the chest shows interval removal of the right-sided central line and lef t-sided thoracostomy tube. No pneumothorax. Left basilar consolidation is stable. Right lung is clear . No effusions. Heart is mildly enlarged. Median sternotomy wires. CONCLUSION: 1. No pneumothorax. 2. Stable left basilar atelectasis versus infiltrate. 3. Cardiomegaly. Willam Evans Jr., MD on July 17, 2017 at 5:14 Board Certified Radiologist. This report was verified electronically.
[2017-07-17 05:37] LABS: BICARBONATE 29.3 MEQ/L (21.0-32.0); CALCIUM 8.8 MG/DL (8.5-10.1); CREATININE 1.27 MG/DL (0.60-1.30); MAGNESIUM 2.4 MG/DL (1.5-2.5)
[2017-07-17 05:38] LABS: HEMATOCRIT 22.8 % (39.0-51.0); HEMOGLOBIN 7.6 GM/DL (13.0-17.0); MEAN CELL VOLUME 90.6 FL (80.0-100.0); MEAN CORPUSCULAR HEMOGLOBIN 30.3 PG (27.0-34.0); MEAN CORPUSCULAR HGB CONC 33.5 % (32.0-36.0); MEAN PLATELET VOLUME 8.1 FL (7.0-11.0); PLATELET COUNT 172 TH/MM3 (150-450); RED BLOOD COUNT 2.52 MIL/MM3 (4.50-5.90); RED CELL DISTRIBUTION WIDTH 16.8 % (11.6-17.2); WHITE BLOOD COUNT 6.7 TH/MM3 (4.0-11.0)
[2017-07-17] MEDS: PANTOPRAZOLE SOD 40 MG DELAYED RELEASE TAB PO SCH (07:20)
[2017-07-17] MEDS: INSULIN ASPART SUPPLEMENTAL SCALE SQ SCH ×2 (08:57→12:32)
[2017-07-17] MEDS: MAGNESIUM HYDROXIDE SUSP 30 ML CUP PO SCH (09:25)
[2017-07-17] MEDS: POLYETHYLENE GLYCOL 17 GM PKG PO SCH (09:25)
[2017-07-17] MEDS: DOCUSATE SODIUM 100 MG CAP PO SCH (09:25)
[2017-07-17] MEDS: FINASTERIDE 5 MG TAB PO SCH (09:26)
[2017-07-17] MEDS: METOPROLOL TARTRATE 25 MG TAB PO SCH (09:26)
[2017-07-17] MEDS: EZETIMIBE 10 MG TAB PO SCH (09:26)
[2017-07-17] MEDS: MULTIVITAMINS/MINERALS THERAPEUTIC TAB PO SCH (09:26)
[2017-07-17] MEDS: PRAVASTATIN SOD 40 MG TAB PO SCH (09:26)
[2017-07-17] MEDS: amLODIPine BESYLATE 5 MG TAB PO SCH (09:26)
[2017-07-17] MEDS: ASPIRIN 81 MG CHEW TAB PO SCH (09:27)
[2017-07-17] MEDS: FLUTICASONE PROPIONATE 44 MCG/ACT 10.6 GM INHALER INH SCH (09:27)
[2017-07-17] MEDS: SODIUM CHLORIDE 0.9% FLUSH 10 ML FLUSH IV FLUSH SCH (09:27)
[2017-07-17] MEDS ORDERED: FERROUS SULFATE 325 MG (65 MG ELEMENTAL IRON) TAB PO SCH (12:00)
[2017-07-17] MEDS ORDERED: FERR325T20 PO (13:10)
[2017-07-17] MEDS ORDERED: DOCU1CAP39 PO (13:10)
[2017-07-17] MEDS ORDERED: ASPI81 PO (13:10)
[2017-07-17] MEDS ORDERED: OXYC1TAB63 PO (13:10)
[2017-07-17] MEDS ORDERED: COMMODE 3-IN-11 MIS (13:14)
--- NOTE | 2017-07-17 13:44 | HHI.DS ---
Discharge Summary Admission Date Jul 10, 2017 at 11:20 Discharge Date: Jul 17, 2017 Admitting Diagnosis Multi-Vessel Coronary Artery Disease. 2. Unstable Angina 3. 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 Urgent Off-pump Coronary Artery Bypass Grafting x 3 with Left Internal Mammary Artery (VALDEZ) to the Left Anterior Descending (LAD), reverse saphenous vein graft to the Diagonal 1 (D1) branch of the LAD, reverse saphenous vein graft to the distal Right Coronary Artery (RCA) 2. Right Leg Endoscopic Vein [place] 3. Intraoperative Vein Mapping Brief History 86/ male patient of Dr. Earl Pratt and Dr. Julia Poole who has had a history of chest tightness in his neck off and on for the past year, worsening over the last couple of months, more noticeable with exertion. He has had a history of coronary artery disease with prior PTCA to the RCA in 1991. He underwent cardiac catheterization today which showed an ejection fraction of 60% , left main disease 20%, proximal LAD 90%, mid distal LAD 75%, the diagonal was 80%, the RCA 80%. We were consulted to evaluate for coronary artery bypass grafting times 3, LAD, diagonal and RCA. He had a prior echocardiogram back in 2014 that at that time showed an ejection fraction of 63%, some diastolic dysfunction and no valvular disease. PAST MEDICAL HISTORY: Includes coronary artery disease, history of DVT, pulmonary emboli in 2010 with a DVT in 2011. He has since been on Coumadin, hypertension, hyperlipidemia, history of renal cancer, skin cancer. 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 require chemo or radiation, TURP of the prostate CBC/BMP: 07/17/17 0437 07/17/17 0437 Significant Findings Laboratory Tests Test 07/15/17 04:03 07/16/17 03:50 07/17/17 01:15 07/17/17 04:37 Red Blood Count 2.57 MIL/MM3 (4.50-5.90) 2.48 MIL/MM3 (4.50-5.90) 2.52 MIL/MM3 (4.50-5.90) Hemoglobin 7.7 GM/DL (13.0-17.0) 7.4 GM/DL (13.0-17.0) 7.6 GM/DL (13.0-17.0) Hematocrit 22.9 % (39.0-51.0) 22.4 % (39.0-51.0) 22.8 % (39.0-51.0) Platelet Count 143 TH/MM3 (150-450) 145 TH/MM3 (150-450) Monocytes (%) (Auto) 11.6 % (0.0-8.0) Monocytes # (Auto) 1.0 TH/MM3 (0-0.9) Blood Urea Nitrogen 22 MG/DL (7-18) 22 MG/DL (7-18) Estimat Glomerular Filtration Rate 56 ML/MIN (>89) 54 ML/MIN (>89) Imaging Last Impressions Chest X-Ray 07/17/17 0600 Signed Impressions: Service Date/Time: Monday, July 17, 2017 04:20 - CONCLUSION: 1. No pneumothorax. 2. Stable left basilar atelectasis versus infiltrate. 3. Cardiomegaly. Willam Evans Jr., MD Lower Extremity Ultrasound 07/10/17 0000 Signed Impressions: Service Date/Time: Monday, July 10, 2017 12:40 - CONCLUSION: Venous mapping as above. Agapito Fulton MD Carotid Artery Ultrasound 07/10/17 0000 Signed Impressions: Service Date/Time: Monday, July 10, 2017 12:58 - CONCLUSION: 1. Scattered bilateral carotid plaque without significant flow-limiting stenosis. 2. Antegrade vertebral artery flow bilaterally. Trell Ellis MD PE at Discharge GENERAL: A&O x 3 SKIN: Warm and dry. prevena dressing to chest , incision intact and well approximated right chest HEAD: Normocephalic. EYES: No scleral icterus. No injection or drainage. NECK: Supple, trachea midline. No JVD or lymphadenopathy. CARDIOVASCULAR: Regular rate and rhythm without murmurs, gallops, or rubs. RESPIRATORY: Breath sounds equal bilaterally. No accessory muscle use. GASTROINTESTINAL: Abdomen soft, non-tender, nondistended. MUSCULOSKELETAL: No cyanosis, or edema. BACK: Nontender without obvious deformity. No CVA tenderness. Hospital Course 07/11 carotid US ok vein mapping : ok , no DVT no chest pain last pm, family concerned about pt having some forgetfulness no cognitive impairment noted remains on Heparin gtt, for surgery on Sunday family updated 07/12 no chest pain during the night , doing well for surgery in am 07/13 SURGICAL PROCEDURE 1. Urgent Off-pump Coronary Artery Bypass Grafting x 3 with Left Internal Mammary Artery (VALDEZ) to the Left Anterior Descending (LAD), reverse saphenous vein graft to the Diagonal 1 (D1) branch of the LAD, reverse saphenous vein graft to the distal Right Coronary Artery (RCA) 2. Right Leg Endoscopic Vein [place] 3. Intraoperative Vein Mapping 07/14 Doing well. Ambulating well Transfer [facility] Maintain CT Beta [place] 07/[address] for another day Ambulate and IS 07/16 chest tubes removed without difficulty gentle diuresis remains in NSR start ferrous sulfate 07/17 doing well , on room air coumadin restarted for discharge home today with [facility] remains in NSR Pt Condition on Discharge: Good Discharge Disposition: Disch w/ Home Health Serv Discharge Instructions DIET: Follow Instructions for: Heart Healthy Diet Activities you can perform: Full Weight Bearing, Shower Only-No Bath Activities to avoid: Strenuous Activity, Driving Additional Activity Instructio: no lifting > 8lbs or gallon of milk Follow up Referrals: Cardiology - 4 Weeks with Earl Pratt MD PCP Follow-up - [address] Julia Poole [address] [place] [address] [id number] Surgical - 2 Weeks with Zuleyma Parrish New Orders: CBC NO DIFF - 1 Week PROTHROMBIN TIME (PT) PT/INR - 1 Week New Medications: Commode 3-in-1 (Commode 3-in-1) 1 Mis Mis EA .XX DIRECTED, #1 0 Refills Aspirin (Tgt Aspirin) 81 Mg Chw 81 MG PO DAILY for Blood Clot Prevention, #30 EA 2 Refills Docusate Sodium (Dok) 100 Mg Cap 100 MG PO BID for Constipation, #60 CAP 0 Refills Ferrous Sulfate (Ferosul) 325 Mg (65 Mg Iron) Tablet 325 MG PO BID@12,17 for anemia, #60 TAB 0 Refills Oxycodone HCl/Acetaminophen (Oxycodone-Acetaminophen 5-325) 5 Mg-325 Mg Tablet 1 TAB PO Q4H PRN for PAIN SCALE 1 TO 10, #40 TAB 0 Refills Continued Medications: Amlodipine (Amlodipine) 5 Mg Tab 5 MG PO DAILY for Blood Pressure Management, #30 TAB 0 Refills Ezetimibe (Zetia) 10 Mg Tab 10 MG PO DAILY, #30 TAB 0 Refills Finasteride (Proscar) 5 Mg Tab 5 MG PO DAILY for Manage Prostate Problems, #30 TAB 0 Refills Do not crush. Fluticasone 10.6 GM Inh (Flovent Hfa 10.6 GM Inh) 44 Mcg/Act Inh 2 PUFF INH DAILY for Asthma Management, #1 INHALER 0 Refills Use daily at the same time. Metoprolol Tartrate (Metoprolol Tartrate) 25 Mg Tab 25 MG PO BID, #60 TAB 0 Refills Multiple Vitamin (Multi-Vitamin Daily) 1 Tab Tab 1 TAB PO DAILY for Nutritional Supplement, TAB 0 Refills Omeprazole (Omeprazole) 20 Mg Tab 20 MG PO DAILY, #30 TAB 0 Refills Pravastatin (Pravastatin) 40 Mg Tab 40 MG PO DAILY for Cholesterol Management, #30 TAB 0 Refills Warfarin (Coumadin) 7.5 Mg Tab 7.5 MG PO THREE DAYS PER WEEK for Prevent Blood Clot, #30 TAB 0 Refills Warfarin (Coumadin) 5 Mg Tab 5 MG PO FOUR DAYS PER WEEK for Blood Clot Prevention, #30 TAB 0 Refills Discontinued Medications: Losartan (Cozaar) 100 Mg Tab 100 MG PO DAILY for Blood Pressure Management, #30 TAB 0 Refills Metoprolol Tartrate (Metoprolol Tartrate) 25 Mg Tab 25 MG PO DAILY, #30 TAB 0 Refills Nitroglycerin SL (Nitrostat SL) 0.4 Mg Subl 0.4 MG SL DIRECTED PRN for CHEST PAIN, #100 TAB.SL 0 Refills 1 tablet under the tongue as needed for chest pain. Repeat every 5 minutes for a total of 3 DOSES or call 911 if NO relief. Tramadol (Tramadol) 50 Mg Tab 50 MG PO Q8H PRN for PAIN, TAB 0 Refills Zuleyma Parrish Jul 17, 2017 13:44
[2017-07-17] MEDS ORDERED: WARFARIN SOD 5 MG TAB PO SCH (16:00)
== END 2017-07-17 14:25 | disposition home health service (06) | DRG 234 ==
LOC: HDIC 06:19 → HDOC 06:19 → HCPC 09:29 → OBSVTOIN 11:20 → HDOC 13:36 → HCIS 07-13 10:30 → HCVI 07-13 15:25 → HCPC 07-14 23:14
PROVIDERS: ADMIT Internal Medicine Cardiovascular Disease; ATTEND Internal Medicine Cardiovascular Disease
PROC: 4A023N7 Measurement of Cardiac Sampling and Pressure, Left Heart, Percutaneous Approach (ICD-10-PCS; 2017-07-10)
PROC: B2111ZZ Fluoroscopy of Multiple Coronary Arteries using Low Osmolar Contrast (ICD-10-PCS; 2017-07-10)
PROC: B2151ZZ Fluoroscopy of Left Heart using Low Osmolar Contrast (ICD-10-PCS; 2017-07-10)
PROC: 021109W Bypass Coronary Artery, Two Arteries from Aorta with Autologous Venous Tissue, Open Approach (ICD-10-PCS; 2017-07-13)
PROC: 06BP4ZZ Excision of Right Saphenous Vein, Percutaneous Endoscopic Approach (ICD-10-PCS; 2017-07-13)
PROC: 02100Z9 Bypass Coronary Artery, One Artery from Left Internal Mammary, Open Approach (ICD-10-PCS; principal; 2017-07-13 11:00)
DX: I25.110 Atherosclerotic heart disease of native coronary artery with unstable angina pectoris (principal); D50.0 Iron deficiency anemia secondary to blood loss (chronic); I12.9 Hypertensive chronic kidney disease with stage 1 through stage 4 chronic kidney disease, or unspecified chronic kidney disease; N18.9 Chronic kidney disease, unspecified; E78.5 Hyperlipidemia, unspecified; Z79.01 Long term (current) use of anticoagulants; Z85.528 Personal history of other malignant neoplasm of kidney; Z85.828 Personal history of other malignant neoplasm of skin; Z86.711 Personal history of pulmonary embolism; Z86.718 Personal history of other venous thrombosis and embolism; Z87.891 Personal history of nicotine dependence; Z98.61 Coronary angioplasty status; L30.9 Dermatitis, unspecified; Z23 Encounter for immunization
CPT/HCPCS: 36430; 71045; 76937; 80048; 81001; 82948; 83036; 83735; 85025; 85027; 85610; 85730; 86850; 86900; 86901; 86920; 87641; 90732; 93005; 93458; 93880; 93970; 93998; 94002; 94010; 94150; 94640; 94664; 94667; 94668; 99152; 99153; C1768; C1769; C1893; J0131; J0690; J1644; J1815; J1817; J1885; J1940; J2250; J2270; J2370; J2440; J2720; J3010; J3370; J3475; J3480; J7060; P9016; P9045; Q9967